=== PATIENT | female | born 1955 | race Caucasian/White ===

== ENCOUNTER 2019-12-31 11:00 | Outpatient (RCR) | payer MEDICARE, SELFPAY ==
--- NOTE | 2019-12-05 09:47 | PTOPEVAL ---
PHYSICAL THERAPY EVALUATION AND PLAN OF CARE Thank you for referring Ginna Sarkar to [facility].? The patient is scheduled to be seen for therapy? 1x/week for 4 weeks. Please review, sign, date and return this plan of care MATT. I agree with and certify that the following plan of care is medically necessary. Referring Physician Date Evaluation Diagnosis parkinson's disease Onset 2015 Additional Evaluation Detail Ginna is known to me from previous physical therapy for same diagnosis. She continues to take no medications, exercises up to 4 hours a day including a stretching program , stationary bike, and weight training. She also performs her LSVT BIG exercises daily. Subjective Information Ginna is here for Query Text:As Reported By Patient/ rehabilitation with diagnosis Family of PD. Reports that she feels there is progression since the last time she was here (~8- 10months ago). Reports that balance seems to be a bigger concern. Shuffling with walking and states that sometimes it feels better with distance and sometimes she fatigues faster. Notes most difficulty bringing right arm up overhead and more difficulty holding RLE in neutral position. Reports she is starting to feel left sided low back pain, especially on days she walks more. States this is not significant enough to give a number on number scale for. \ Balance Assessment Tinetti Balance Assessment: Vasquez Balance Assessment: 56/ 56 Time Up Go Timed Up and Go Test (TUG) (Seconds) 8 Assistive Devices None Comments 02/06/2019 = 6seconds 5 Time Sit to Stand Time in Seconds 8.98 5 Time Sit to Stand Comments 02/06/2019 = 7seconds Functional Gait Assessment: gait with cognitive challenge: gait speed/pattern remains unchanged, but cognitive challenge is slow to perform Gait Pattern Assessment Other Gait Observations Rigid gait pattern on right side of body: decreased arm swi
--- NOTE | 2019-12-05 10:33 | OTOPEVAL ---
OCCUPATIONAL THERAPY EVALUATION REPORT 12/05/2019 Thank you for referring Ginna Sarkar to [facility].? The patient is scheduled to be seen for occupational therapy? 1x/week for 4 weeks. Please review, sign, date and return this plan of care MATT. I agree with and certify that the following plan of care is medically necessary. Referring Physician Date Referring Provider: Ilan Boyce MD *OT Outpatient Evaluation Therapy Assessment Status Assessment Status Assessment Status Evaluation Outpatient Past Medical History Neurological History Hx Parkinson's Disease Yes Musculoskeletal History Hx Arthritis Yes Hematological History Hx Hematological Disorders No Significant History Endocrine History Hx Endocrine Disorders No Significant History HEENT History Hx HEENT Disorders No Significant History Integumentary History Hx Skin Disorders No Significant History Reproductive History Hx Reproductive Disorders No Significant History Psychosocial History Hx Psychiatric Disorders No Significant History Evaluation Information Problem Diagnosis Parkinson's Disease Additional Evaluation Detail Ginna presents for a tune up , last coming to therapy here about 11 months ago. She continues to take no medication and exercises about 4 hours/day which includes plyometrics, stretching, strength training. She has been completing LSVT exercises also. Subjective Information Patient reports that over the Query Text:As Reported By Patient/ past year she has noticed Family increased rigidity of her right UE and worsening symptoms of bradykinesia. She also notes stiffness in her elbow and hand, stating that her hand tends to curl . She also notes difficulty with raising her arm overhead and keeping her elbow straight. Fine motor tasks such as turning a garcia in her car's ignition has become more difficult. Other tasks she notes that have declined over the past year include cutting vegetables, stirring, brushing teeth with the right hand. Patient Specific Functional Scale:
--- NOTE | 2019-12-31 10:49 | OTOPEVAL ---
OCCUPATIONAL THERAPY RE-EVALUATION AND DISCHARGE REPORT 12/31/2019 OT re-evaluation reveals no significant change in functional coordination, ROM, or strength of the right UE since the initial evaluation from 12/05/19. She does report that she learned some new techniques and stretches to incorporate with her regular exercise routine. She also has improved body awareness of the right side, particularly with positioning the right arm in an extended position and keeping her hand/fingers straight as they tend to position in a curled posture. No further skilled OT indicated at this time. Discharge with patient independent with all materials. Thank you for referring Ginna Sarkar to [facility].? Please review, sign, date and return this Discharge Note MATT. I agree with and certify that the following plan of care is medically necessary. Referring Physician Date Referring Provider: Dr. Ilan Boyce *OT Outpatient Re-Evaluation Evaluation Information Problem Diagnosis Parkinson's Disease Onset 2015 Additional Evaluation Detail Ginna has participated in a therapy tune up , last coming to therapy here about 11 months ago. She continues to take no medication and exercises about 4 hours/day which includes plyometrics, stretching, strength training. She has been completing LSVT exercises also. Subjective Information Patient reports that over the Query Text:As Reported By Patient/ past month she has seen some Family improvements functionally, however she notes increased fatigue overall. She states this fatigue might be affected by the holidays coming up and being unable to see her family. She states that the rigidity and tightess in her right UE has not changed, but she states she is more aware of it and regularly incorporates stretching throughout the day. Patient Specific Functional Scale: Teeth brushin (improved from 5) Turning garcia in ingition: 5 ( unchanged 5) Stirrin (unchanged from 5) Cutting w/ knife: 6 (improved from 4) Push ups: 8 (improved from 4) Pain Assessment Timing of Pain Assessment Timing of Pa
--- NOTE | 2019-12-31 13:10 | PTOPEVAL ---
PHYSICAL THERAPY DISCHARGE NOTE Thank you for referring Ginna Sarkar to [facility].? Please review, sign, date and return this plan of care MATT. I agree with and certify that the following plan of care is medically necessary. Referring Physician Date Discharge Outpatient Past Medical History Diagnosis Parkinson's Disease Onset 2015 Subjective Information Patient reports feeling stiff Query Text:As Reported By Patient/ this morning, but otherwise no Family significant changes. Right side is rigid and expereinces hypokinesia and bradykinesia. Self Report Self Report Pain Level 0 Pain Score Pain Score 0: Self Report Balance Assessment Tinetti Balance Assessment Score (Balance + Gait) Lares Balance Assessment LARES Balance Evaluation Total Score 56/56 Time Up Go (TUG) Timed Up and Go Test (TUG) (Seconds) 6 Assistive Devices None Comments 12/05/2019 = 8seconds 02/06/2019 = 6seconds 5 Time Sit to Stand Time in Seconds 7.43 5 Time Sit to Stand Comments 12/05/2019 = 8.98seconds 02/06/2019 = 7seconds Functional Gait Assessment Total Score 29/30 Gait Pattern Assessment Other Gait Observations Rigid gait pattern on right side of body: decreased arm swing, decreased heel strike, decreased right knee extension ; faster patient tries to walk , the more forward posture she has; states that sometimes when walking, she will have to physically stop because she is so forward and her feet are so far behind 2 Minute Walk Total Distance Walked (feet) 509 2 Minute Walk Gait Speed Score (feet/ 4.24 second) 2 Minute Walk Test Comments decreased arm swing and decreased heel strike; increased lumbar lordosis : 3.99ft/second (02/06/2019 = 4.3ft/second) PT Clinical Summary Ginna si a 64 yo female presenting to outpatient physical therapy with diagnosis of parkinson's disease. Ginna has completed her tune up and we addressed balance, gait, strength, single
== END 2020-01-01 11:11 | disposition home or self-care (01) ==
LOC: ANHPT 11:00
PROVIDERS: PCP Family Medicine Adolescent Medicine
DX: G20 Parkinson's disease (principal)
CPT/HCPCS: 97110; 97161; 97165

== ENCOUNTER 2020-09-25 17:16 | Emergency (ER) | payer MEDICARE, SELFPAY ==
[2020-09-25 17:27] VITALS: BP 119/75; PULSE 91; RESP 18; TEMP 37.3; O2SAT 97
--- NOTE | 2020-09-25 18:26 | ED.GENADULT ---
HPI - General Adult General Chief complaint: Back Pain/Injury Stated complaint: back pain Source: patient and family (Adult son) Mode of arrival: ambulatory Limitations: no limitations History of Present Illness HPI narrative: Patient is a 65-year-old female presents to the urgent care via POV for evaluation of upper back pain that is been present for 3 days. Additionally, patient reports back pain radiates up back. She believes her back pain was caused by tree trimming on Tuesday since she noticed the pain after pulling the tree trimming away from the tree on a tarp. Back pain improves with lying flat, taking Tylenol and Aleve. Prolonged sitting and standing worsens back pain. History of chronic back pain. Related Data Home Medications Medication Instructions Recorded Confirmed atorvastatin 09/25/20 Allergies Allergy/AdvReac Type Severity Reaction Status Date / Time codeine Allergy Mild Verified 02/12/13 11:24 penicillin G Allergy Mild Verified 02/12/13 11:24 Review of Systems Review of Systems: Denies history of injury, urinary tract infections, pyelonephritis, and renal calculi. Denies fever, chills, sweats, change in appetite, poor p.o. intake, malaise, recent weight loss, myalgias, lymphadenopathy, headache, dizziness, STD exposure, painful intercourse, abdominal pain, constipation, nausea, vomiting, diarrhea, abdominal cramping, dysuria, hematuria, urinary frequency/urgency, back pain, urinary incontinence, vaginal bleeding/discharge, shortness of breath, chest pain, and heart palpitations/murmurs. [facility] Past Medical History Medical History (Updated 09/25/20 @ 18:30 by Amol Gomez, [employer] [facility], ) Chronic back pain Parkinson's disease Comments I have reviewed and agree with the patient's past medical, surgical, social, and family hx as documented by the RN. There is no relevant family history pertinent to the presenting complaint. Exam Narrative: GENERAL: Well-appearing, well-nourished, and in no acute distress. HEAD: Normocephalic, atraumatic. NECK: Supple. No lymphadenopathy or nuchal rigidity. No evidence of pain, decreased ROM, or deformity. CHEST: Lung sounds are clear to auscultation in bilateral lung olea. No respiratory distress. HEART: Regular rate and rhythm. No murmur heard. Normal peripheral pulses. ABDOMEN: Soft, nontender, nondistended, normal active bowel sounds in all quadrants. No guarding. No rebound tenderness. No pulsatile or palpable abdominal mass(es). No CVAT EXTREMITIES: Normal range of motion. No edema. BACK: Full ROM. No evidence of deformity, spasm, mass, spinal tenderness, or swelling. Bilateral SLR tests negative. Normal gait. Mild bilateral thoracic pain elicited with palpation. Pain is present with all range of motion. SKIN: Warm, dry, no rash. No skin color changes. Excellent turgor. NEURO: No focal deficits. Alert and oriented x3. Course Vital Signs Vital signs: Vital Signs Temperature 99.1 F 09/25/20 17:27 Pulse Rate 91 09/25/20 17:27 Respiratory Rate 18 09/25/20 17:27 Blood Pressure 119/75 09/25/20 17:27 Pulse Oximetry 97 09/25/20 17:27 Temperature 99.1 F 09/25/20 17:27 Pulse Rate 91 09/25/20 17:27 Respiratory Rate 18 09/25/20 17:27 Blood Pressure 119/75 09/25/20 17:27 Pulse Oximetry 97 09/25/20 17:27 Medical Decision Making Differential Diagnosis Differential Diagnosis: Spinal stenosis, radiculopathy/sciatica,cauda equina syndrome, sacroiliac pathology, fracture, strain, spasm, UTI, pyelonephritis, nephrolithiasis Medical Records Medical records reviewed: Yes I reviewed the external patient's medical records. Vital Signs Vital Signs: Vital Signs Temperature 99.1 F 09/25/20 17:27 Pulse Rate 91 09/25/20 17:27 Respiratory Rate 18 09/25/20 17:27 Blood Pressure 119/75 09/25/20 17:27 Pulse Oximetry 97 09/25/20 17:27 Temperature 99.1 F 09/25/20 17:27 Pulse Rate 91 09/25/20 17:27 Respir
== END 2020-09-25 18:32 | disposition home or self-care (01) ==
PROVIDERS: Emergency Provider Nurse Practitioner Family; PCP Family Medicine Adolescent Medicine
DX: M54.6 Pain in thoracic spine (principal); G20 Parkinson's disease
CPT/HCPCS: 99213; G0463

== ENCOUNTER → 2020-12-23 11:39 | Outpatient (CLI) | payer MEDICARE, SELFPAY ==
--- NOTE | ~2020-12-23 | XR_ITS ---
XR lumbar spine 2-3V DATE: 12/23/2020 12:36 INDICATION: Back pain TECHNIQUE: AP, lateral, coned lateral lumbosacral views COMPARISON: None FINDINGS: There is prominent diffuse osteopenia. There is grade 1 anterolisthesis at L4-5 due to degenerative change at the apophyseal joints. No fracture or bone destruction is evident. The lumbar pedicles are intact. There is mild degenerative disc disease at L1-2, L2-3 and L3-4. The sacroiliac joints are intact. IMPRESSION: Prominent diffuse osteopenia Grade 1 anterolisthesis at L4-5 due to degenerative change at the apophyseal joints Mild degenerative disc disease Reviewed, dictated and finalized at location [facility] IMPRESSION: Prominent diffuse osteopenia Grade 1 anterolisthesis at L4-5 due to degenerative change at the apophyseal ann ints Mild degenerative disc disease
== END ==
PROVIDERS: PCP Family Medicine Adolescent Medicine; Visit Provider Family Medicine Adolescent Medicine
DX: M85.88 Other specified disorders of bone density and structure, other site (principal); M51.36 Other intervertebral disc degeneration, lumbar region
CPT/HCPCS: 72100

== ENCOUNTER 2021-04-12 13:07 | Emergency (ER) | payer MEDICARE, SELFPAY ==
[2021-04-12 13:20] VITALS: BP 110/73; PULSE 91; RESP 18; TEMP 36.8; O2SAT 100
--- NOTE | 2021-04-12 13:34 | ED.EYEPROB ---
HPI - Eye Problem General Chief complaint: Eye Problems Stated complaint: Left Eye Pressure Time Seen by Provider: 04/12/21 13:34 Source: patient and RN notes reviewed Mode of arrival: ambulatory Limitations: no limitations History of Present Illness HPI Narrative: 65-year-old female presents to the [facility] with complaints of redness to the cornea of the left eye. Noticed it this morning after using the bathroom Patient does use contact lenses. No strenuous activity. Cannot think of any trauma to the eye. Denies any blurry vision or change in vision. Denies headaches, congestion. MD chief complaint: eye pain and eye redness Related Data Home Medications Medication Instructions Recorded Confirmed atorvastatin 20 mg PO DAILY 04/12/21 04/12/21 ropinirole 0.5 mg PO DAILY 04/12/21 04/12/21 Allergies Allergy/AdvReac Type Severity Reaction Status Date / Time codeine Allergy Mild Hives Verified 04/12/21 13:14 penicillin G Allergy Mild Hives Verified 04/12/21 13:14 Review of Systems Review of Systems: All systems reviewed & are unremarkable except as noted in HPI and below Constitutional: Constitutional: Reports no additional constitutional complaints, Denies chills and Denies fever(s) Eyes: Eyes: Reports as per HPI Comments: Redness ENT: Reports system reviewed and no additional complaints, except as documented Cardiovascular: Cardiovascular: Reports no additional cardiovascular complaints Respiratory: Respiratory: Reports no additional respiratory complaints Gastrointestinal: Gastrointestinal: Reports no additional gastrointestinal complaints Musculoskeletal: Musculoskeletal: Reports no additional musculoskeletal complaints Integumentary/Breasts: Skin/Breast: Reports system reviewed and no additional complaints, except as docu Neurologic: Reports system reviewed and no additional complaints, except as documented Psychiatric: Psychiatric: Reports no additional psychiatric complaints Allergic/Immunologic: Allergic/Immunologic: Reports no additional allergic/immunologic complaints PMFSH Past Medical History Medical History Chronic back pain Parkinson's disease Comments At the time of my signature, I reviewed and agree with the nursing past medical, surgical, social, and family history. There is no relevant family history pertinent to the patient complaint. Exam Const: General: healthy appearing, no acute distress and alert Nutritional Appearance: well nourished Orientation/consciousness: patient oriented x3 Limitations: no limitations HENMT: Head: normal to inspection Ears: external ears normal Eyes: Conjunctivae: conjunctivae normal Cornea: corneas abnormal on the left fluorescein used and abrasion; no contact lens present, with no foreign body noted and without ulcerations Pupils: Equal, round and reactive pupils present EOM: EOMs intact bilaterally Direct Ophthalmoscopy: no photophobia Eyes/upper lids images: 1. abrasion 2. Subconjunctival hemorrhage Neck: Neck: normal visual inspection, no lymphadenopathy and no meningeal signs Chest: Chest palpation & inspection: normal inspection of the chest Resp: Effort & Inspection: normal respiratory effort Auscultation: clear to auscultation bilaterally Cardio: Rate: regular rate Rhythm: regular rhythm Skin: General skin exam: normal color Rashes: no rashes Wounds: no wounds Neuro: General: patient oriented x3, moves all extremities, no meningeal signs and no focal motor deficits Speech: normal speech Gait exam (Neuro): Normal gait present (Shuffling gait, Parkinson's) Extrem: General: normal to inspection Psych: Appearance: grossly normal and well kempt Mental Status: mental status grossly normal Affect: normal affect Attitude: cooperative Thought content: Yes Normal thought content present Course Course Emergency Course: Discharge instructions reviewed with patient, renetta
== END 2021-04-12 14:13 | disposition home or self-care (01) ==
PROVIDERS: Emergency Provider Nurse Practitioner; PCP Family Medicine Adolescent Medicine
DX: S05.02XA Injury of conjunctiva and corneal abrasion without foreign body, left eye, initial encounter (principal); X58.XXXA Exposure to other specified factors, initial encounter; H11.32 Conjunctival hemorrhage, left eye; G20 Parkinson's disease
CPT/HCPCS: 99213; A9270; G0463

== ENCOUNTER 2021-04-29 09:30 | Outpatient (RCR) | payer MEDICARE, SELFPAY ==
--- NOTE | 2021-03-18 11:23 | PTOPEVAL ---
PHYSICAL THERAPY EVALUATION and PLAN OF CARE Thank you for referring Ginna Sarkar to [facility].? The patient is scheduled to be seen for therapy? 1x/week for 6 weeks. Please review, sign, date and return this plan of care MATT. I agree with and certify that the following plan of care is medically necessary. Referring Physician Date Evaluation Outpatient Past Medical History Neurological History Hx Parkinson's Disease Yes Musculoskeletal History Hx Arthritis Yes Hematological History Diagnosis Parkinson's Disease Subjective Information Patient presents today for PT Query Text:As Reported By Patient/ evaluation, stating that she Family has noticed a progression in her PD symptoms since her last visit to our clnic in Dec 2019. She states that she has begun falling and that she began taking medication ( Ropinirole) 10 days ago. States that the falling typically happens when she gets into a stutter stepping pattern and she twan fall when she stops (momentum keeps going). The first 10 days of medication do not seem to have made a difference so her neurologist doubled the dose. She notes her posture is more forward. She notes a decline in right sided gross motor coordination and strength. She states her right side feels more rigid and that she has been having sharp, stabbing right sided back pain for about 6 months. Functionally she states she has been having increased difficulties with typing, opening soup cans, chopping vegetables, push ups, holding/ using a tooth brush, using fingernail clippers, turning a garcia to start the car, using scissors, and stirring food ( salads, pasta, mashed potatoes , etc.) Patient reports that she continues to move and stretching tacho
--- NOTE | 2021-03-18 11:28 | OTOPEVAL ---
OCCUPATIONAL THERAPY INITIAL EVALUATION REPORT 03/18/21 Thank you for referring Ginna Sarkar to [facility].? The patient is scheduled to be seen for therapy? 1x/week for 4-6 weeks. Please review, sign, date and return this plan of care MATT. I agree with and certify that the following plan of care is medically necessary. Referring Physician Date *OT Outpatient Evaluation Start: 03/18/21 08:59 Outpatient Past Medical History Neurological History Hx Parkinson's Disease Yes Musculoskeletal History Hx Arthritis Yes Hematological History Hx Hematological Disorders No Significant History Endocrine History Hx Endocrine Disorders No Significant History HEENT History Hx HEENT Disorders No Significant History Integumentary History Hx Skin Disorders No Significant History Reproductive History Hx Post Menopausal Yes Psychosocial History Hx Psychiatric Disorders No Significant History Evaluation Information Problem Diagnosis Parkinson's Disease Onset diagnosis ~6 years ago Subjective Information Patient presents today for OT Query Text:As Reported By Patient/ evaluation, stating that she Family has noticed a progression in her PD symptoms since her last visit to our cl[facility] in Dec 2019. She states that she has been falling and that she began taking medication ( Ropinirole) 10 days ago. She notes her posture is more forward. She notes a decline in right sided gross motor coordination and strength. She states her right side feels more rigid and that she has been having sharp, stabbing right sided back pain for about 6 months. Functionally she states she has been having increased difficulties with typing, opening soup cans, chopping vegetables, push ups, holding/using a tooth brush, using fingernail clippers, turning a garcia to start the car , using scissors, and stirring food (salads, pasta, mashed potatoes, etc.). She states that she has given a lot of her clothes away this past year due to having too much
--- NOTE | 2021-04-29 09:44 | PTOPEVAL ---
PHYSICAL THERAPY DISCHARGE NOTE Thank you for referring Ginna Sarkar to [facility].? Please review, sign, date and return this plan of care MATT. I agree with and certify that the following plan of care is medically necessary. Referring Physician Date Diagnosis Parkinson's Disease Onset diagnosis ~6 years ago Subjective Information things she has learned: Query Text:As Reported By Patient/ quality over quantity in Family exercising, slower can be better, big is always better; specific exercises - she really enjoys doing angels states that her medication makes her feel weird - like she has tingling inside and her stomach hurts PAIN: right ankle was really very sore two days after a walk but then the 3rd day was feeling better - we spent some time discussing strategies to manage these symptoms with stretching and breaks as needed, provided her with specific stretches to do and practiced them Pain Assessment Timing of Pain Assessment Timing of Pain Assessment Pre-Treatment Self Report Self Report Pain Level 0 Pain Score Pain Score 0: Self Report Lower Extremity Muscle Strength Testing Hip Strength Right Hip Flexion Strength 4+ Good + Hip Extension Strength 3+ Fair + Hip Abduction Strength 3+ Fair + Knee Strength Right Knee Flexion Strength 4+ Good + Knee Extension Strength 4+ Good + Palpation Assessment Palpation Palpation improved thoracic and rib mobility although does continue to be quite hypomobile secondary to rigidity from PD diagnosis - we discuss at length the reccomendation to increase scapular movement and mobility and using foam roll to decreased stiffness/tightness of thoracic spine Gait Assessment 6 Minute Walk Total Distance (feet) 1,051 6 Minute Walk Gait Speed Score (feet/ 2.91 second) 6 Minute Gait Comments 6 weeks ago = 1001 (2.78ft/ second) General Exercise Gene
--- NOTE | 2021-04-29 10:28 | OTOPEVAL ---
OCCUPATIONAL THERAPY RE-EVALUATION REPORT AND DISCHARGE SUMMARY 04/29/21 Ginna is a 65 year-old, right handed female with dx of Parkinson's who is referred to outpatient therapy due to progression in her symptoms with bradykinesia, hypokinesia, and rigidity, which has affected her functionally with ADLs, cooking tasks, and mobility related ADLs. We have been working with Ginna 1x/week for the past 6 weeks focusing on improved movement quality, bigness , and bodily awareness. She reports some functional improvements and reports some areas that feel the same. Overall she feels encouraged and has a few new exercises to continue to do on her own. Discharging today with patient independent with all materials. Thank you for referring Ginna Sarkar to [facility] [place]. Please review, sign, date and return this D/C Note MATT. I agree with and certify that the following plan of care is medically necessary. Referring Physician Date *OT Outpatient Evaluation Start: 03/18/21 08:59 Evaluation Information Problem Diagnosis Parkinson's Disease Onset diagnosis ~6 years ago Subjective Information Ginna states that she has Query Text:As Reported By Patient/ learned a lot by coming to Family therapy noting that she is more mindful about her posture , weight shifting, and bigness during ADLs. She does note that her handwriting looks more legible. Functionally she states she has noticed some improvements with using a nail clipper, starting the car, twist bottle tops, putting on shoes, and pinching a pant communications clerk. Pain Assessment Timing of Pain Assessment Timing of Pain Assessment Re-assessment Pain Scale Pain Scale Used Numeric (1 - 10) Self Report Pain Assessment Right Lower Back Reported Pain Level 0 Pain Score Pain Score 0: Self Report Upper Extremity Range of Motion Scapular/ Shoulder Range of Motion Right Scapular: Retraction Normal Scapular Downward Rotation Normal Scapular Upward Rotation Normal Shoulder Flexion - Active 135 Shoulder Extension - Active 55 Shoulder Abduction - Active 140 Shoulder Medial Rotation - Active 3 inch discrepancy between Query Text:Reach Behind the Back right and left. Unchanged. Shoulder Lateral Rotation - Active Lateral rotation is now Query Text:Reach Behind the Head symmetrical. Scapular/Shoulder Range of Motion Shoulder flexion improved 10* Comments Shoulder extension improved 5* Shoulder abduction improved 10* Elbow/Forearm Range of Motion Right Elbow Flexion - Active 140 Elbow Extension - Active 0 Forearm Supination - Active
== END 2021-06-01 09:18 | disposition home or self-care (01) ==
LOC: ANHOT 09:30
PROVIDERS: PCP Family Medicine Adolescent Medicine
DX: G20 Parkinson's disease (principal)
CPT/HCPCS: 97110; 97112; 97116; 97140; 97163; 97166; 97530

== ENCOUNTER → 2021-06-03 11:20 | Outpatient (CLI) | payer MEDICARE, SELFPAY ==
--- NOTE | ~2021-06-03 | XR_ITS ---
XR foot RT min 3V DATE: 06/03/2021 11:38 INDICATION: Right foot pain TECHNIQUE: 4 views COMPARISON: None FINDINGS: Diffuse osteopenia. No fracture or dislocation, periosteal reaction or bone destruction. IMPRESSION: Osteopenia Reviewed, dictated and finalized at location A. IMPRESSION: Osteopenia
== END ==
PROVIDERS: PCP Family Medicine Adolescent Medicine; Visit Provider Physician Assistant
DX: M85.871 Other specified disorders of bone density and structure, right ankle and foot (principal)
CPT/HCPCS: 73630

== ENCOUNTER → 2021-09-11 15:34 | Outpatient (CLI) | payer MEDICARE, SELFPAY ==
--- NOTE | ~2021-09-11 | DEXA_ITS ---
Bone Density Report Name: AZIZA DOLL Age: 66 Sex: Female Ethnicity: White Date of : 1955 Indication: postmenopausal; screening for osteoporosis; height loss; Referring Provider: ELLEN SALGADO Study: Bone densitometry was performed. Exam Date: September 11, 2021 Accession number: [id number] Bone Density: Region BMD T-score Z-score Classification AP Spine (L1-L4) 0.513 -4.9 -2.9 Osteoporosis Femoral Neck (Left) 0.468 -3.4 -1.8 Osteoporosis Total Hip (Left) 0.623 -2.6 -1.2 Osteoporosis Femoral Neck (Right) 0.416 -3.9 -2.2 Osteoporosis Total Hip (Right) 0.538 -3.3 -1.9 Osteoporosis Total Hip Mean 0.581 -3.0 -1.6 Osteoporosis World Health Organization criteria for BMD impression classify patients as: Normal (T-score at or above -1.0), Osteopenia (T-score between -1.0 and -2.5), or Osteoporosis (T-score at or below -2.5). 10-year Fracture Risk: FRAX not reported because: Some T-score for Spine Total or Hip Total or Femoral Neck at or below -2.5 Clinical Information Provided by Patient: Has used the following medications: Vitamin D, Calcium Patient maximum height was 60 Menopause Age: 51 Onset of menses at age 13 Number of children 2 Impression: The patient has osteoporosis, based on the Total Spine T-score. Discussion: HIGH RISK OF FRACTURE. BONE DENSITY IS UNDESIRABLY LOW AT ONE OR MORE SKELETAL SITES, CONSISTENT WITH OSTEOPOROSIS. ALSO, BONE DENSITY IS LOWER THAN EXPECTED FOR AGE AND SEX AT ONE OR MORE SKELETAL SITES; RECOMMEND A DILIGENT SEARCH FOR SECONDARY CAUSES OF BONE LOSS. This patient's lowest T-score meets the World Health Organization's (WHO) criteria for osteoporosis at one or more sites (T-score -2.5 or below). In untreated patients, the risk of osteoporotic fracture increases approximately two-fold for each 1.0 SD decrease in T-score. Low bone density is not the only risk factor for fracture; also consider factors such as patient's age, frailty or poor health, risk of falling, risk of injury, previous osteoporotic fracture, family history of osteoporosis, cigarette smoking, low body weight, etc. Not everyone with low bone mineral density has osteoporosis; osteomalacia and other metabolic bone disorders should also be considered. Patients who have osteoporosis should be evaluated for specific diseases and conditions (secondary causes) that may cause or contribute to bone loss. The [place] Association [employer] Clinical Endocrinologists (AACE) and National Osteoporosis Foundation (NOF) recommend pharmacologic intervention for all postmenopausal women whose T-score is in this range. Also, this patient's bone mineral density is below the range considered normal for healthy age-, sex-, and race-matched controls at least one site (Z-score -2.0 or below). This warrants careful evaluation for diseases and
== END ==
PROVIDERS: Visit Provider Physician Assistant
DX: Z78.0 Asymptomatic menopausal state (principal); M81.0 Age-related osteoporosis without current pathological fracture
CPT/HCPCS: 77080

== ENCOUNTER 2021-11-19 09:30 | Outpatient (RCR) | payer MEDICARE, SELFPAY ==
--- NOTE | 2021-10-22 10:36 | OTOPEVAL1 ---
Assessment and note entered by Jamin Zaman, OLMAN/Josie, CHT Evaluation Information Assessment Status Evaluation Diagnosis Parkinson's Disease Subjective Information Initial dx ~6 years ago. Patient began taking medication 2 weeks ago - Rasagiline. She takes a dose 1x/day. She continues to exercise 2 hrs/day, but has cut back on walking due to fear of falling. She states the right foot drags or she stumbles. 1 fall in the last month. Daily near falls . She reports a decline in her posture, noting that her shoulders tend to roll more forward especially with prolonged standing activities. She states she is noticing increased fatigue - I can't do too much in one day or I'm exhausted. PSFS: - using a nail clipper 04/16 - opening jars 05/17 - donning shoes 06/16 - starting the car 05/17 - hand writing 05/17 - walking 04/16 Reported Pain Level Pain Score 0: Self Report Assessment OT Clinical Summary Ginna is a 66 year-old, right handed female with dx of Parkinson's who is referred to outpatient therapy due to progression in her symptoms with bradykinesia, hypokinesia, and rigidity, which has affected her functionally with ADLs, cooking tasks, and mobility related ADLs. She will benefit from skilled OT treatment focused on targeting neuroplasticity via amplitude-based interventions to target kinesthetic mismatch between Billys perception of movement and the actual output. Plan of Care Interventions Therapeutic Exercise,Neuro Re-education, Therapeutic Activities,Self-Care/Home Management OT Services Indicated Yes Treatment Frequency and 1x/week for 4 weeks Duration These treatments will address the objective and functional deficits as defined above. The patient will be advanced safely and appropriately in order for the patient to progress towards his/her prior level of function. Additional exercises will be introduced and as well as a comprehensive home exercise program upon discharge, if needed, ?to ensure carryover of functional gains achieved in the clinic. This treatment plan has been reviewed and agreement upon by the patient.
--- NOTE | 2021-10-22 15:05 | PTOPEVAL1 ---
Assessment and note entered by Samantha Brambila, PT Evaluation Information Assessment Status Re-evaluation Reported Pain Level Pain Score 0: Self Report Pain Score 0: Self Report Pain Score 0: Self Report Assessment PT Clinical Summary Pt presents w/ dx of PD, inital dx 6 years ago. Today demo's significant gait abnormalities related to body awareness. Demo's crouched gait, unequal step length, lack of RUE swing, decreased clearance bilat R>L, shuffling pattern and easily fatigued. Also demo's difficulty with mat mobility related to rigidity vs flexibility. Pt reports she does exercise daily and reports approx 3 hours worth of activity. Discussed modification of exercise routine for more efficient use of time as well as postural activity to lift her chin while in sitting to assist in improvement of flexion posturing. Pt will benefit greatly from PT to address improvement of rigidity, body awareness, balance, and gait in order to improve pt independence and quality of life. Plan of Care Interventions Gait Training,Manual Therapy,Patient/Caregiver Educati,Therapeutic Activities,Therapeutic Exercise PT Services Indicated Yes Treatment Frequency and 1x weekly x 10 weeks Duration These treatments will address the objective and functional deficits as defined above. The patient will be advanced safely and appropriately in order for the patient to progress towards his/her prior level of function. Additional exercises will be introduced and as well as a comprehensive home exercise program upon discharge, if needed, ?to ensure carryover of functional gains achieved in the clinic. This treatment plan has been reviewed and agreement upon by the patient.
--- NOTE | 2021-11-19 10:15 | OTOPDC ---
Assessment and note entered by OLMAN Monsivais/Josie Evaluation Information Assessment Status Discharge Diagnosis Parkinson's Disease Subjective Information Patient reports starting car ignition and jar turning has become easier since first appointment. Patient reports nail clippers is still difficult to complete. Patient reports independence with HEP materials and has been diligent to complete daily . Reported Pain Level Pain Score 0: Self Report Assessment OT Clinical Summary Ginna is a 66 year old R hand dominant Female with a dx of Parkinson's who is referred to outpatient therapy to address progression in her symptoms with bradykinesia, hypokinesia, and rigidity, which has affected her functionally with ADLs. She has attended x4 sessions with OT to address targeting neuroplasticity via amplitude- based interventions to target kinesthetic mismatch between Aarons perception of movement and the actual output. Patient has made progress with R UE strength, active ROM, and fine motor coordination as measured through nine hole peg test, patient also self reports improvements with functional activities including starting care and opening jars. No skilled OT is indicated at this time, patient agreeable to discharge, independent with HEP materials. Plan of Care OT Services Indicated No
--- NOTE | 2021-11-24 13:20 | PCPTNOTE ---
Evaluation 10/22/21 late entry: performed Evaluation, not reevaluation. Mistake occurred while editing Evaluation.
== END 2022-01-07 10:42 | disposition home or self-care (01) ==
LOC: ANHOT 09:30
PROVIDERS: PCP Family Medicine Adolescent Medicine
DX: G20 Parkinson's disease (principal)
CPT/HCPCS: 97110; 97112; 97116; 97162; 97166; 97168; 97530

== ENCOUNTER 2022-08-04 09:00 | Outpatient (RCR) | payer MEDICARE, SELFPAY ==
--- NOTE | 2022-05-11 10:21 | PTOPEVAL1 ---
Assessment and note entered by Sally Sheppard, PT Evaluation Information Assessment Status Evaluation Diagnosis Parkinson's Disease Onset Feb 2022 Subjective Information Ginna reports more stiffness, balance problems and walking problems; have not had any falls in the past 6 months, have had stumbles and loss of balance, but not hit the ground; exercises every day-Big and Loud exercises, DVD of classical stretch, 5# hand wts for arms, pilates/yoga--was working out 5 hrs/day, but decreased to 2 hours and feel better with less back pain; started taking a new Parkinson's med about 6 months ago-- she thinks; still have some freezing with walking GOAL for PT: work on balance and walking; less ankle pain Reported Pain Level Pain Score Self Report Additional Pain Score Comments pain range of ankles in past week 1-10/17, L more pain than R; increase pain with walking and standing 10 minutes; use muscle cream and tylenol for pain Assessment PT Clinical Summary Ginna has the diagnosis of Parkinson's Disease. She reports increased ankle pain in both, L more than R, after increased walking and activity. 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 And has not had any falls. With the evaluation, she has decreased strength and motor control of R ankle and pain in L ankle with walking; TUG, Vasquez balance test scores are within normal ranges. Single leg standing on the L is decreased due to pain in ankle; 2 minute walking test distance is 375' with increased pain L ankle and poor gait pattern. Skilled PT services are indicated, for therapeutic exercises and activities to increase ankle strength and decrease pain in L ankle, with modalities PRN for pain control and gait/balance retraining. Plan of Care Interventions Electrical Stimulation,Gait Training,Hot Pack/Cold Pack,Manual Therapy,Neuro Re-education,Patient/ Caregiver Education,Therapeutic Activities, Therapeutic Exercise,Ultrasound,Other Other Interventions fluidotherapy, taping PT Services Indicated Yes Treatment Frequency and 1x/wk for 6 weeks Duration These treatments will address the objective and functional de
--- NOTE | 2022-05-11 11:43 | OTOPEVAL1 ---
Assessment and note entered by Jamin Zaman, OLMAN/Josie, CHT Evaluation Information Assessment Status Evaluation Diagnosis Parkinson's Subjective Information Initial dx ~6.5 years ago. Patient began taking medication 6 months ago - Rasagiline. She takes a dose 1x/day. Reports this has been helping with her movement quality and she has not had any falls since beginning the medication. She states her family has noticed that she is moving better on the medication also. She reports difficulties with ADL tasks below: PSFS: - using a nail clipper 06/16 - opening jars 06/16 - donning shoes 07/17 - starting the car 07/17 - hand writing 05/17 - walking 07/17 Assessment OT Clinical Summary Patient referred to outpatient OT with dx of Parkinson's. Skilled therapy indicated secondary to a decline in ADL function and recent falls due to bradykinesias and hypokinesia. She will benefit from skilled treatment focused on targeting neuroplasticity via amplitude-based interventions to target kinesthetic mismatch between patient's perception of movement and the actual output to facilitate recalibration of kinesthetic and proprioceptive movement. Plan of Care Interventions Therapeutic Exercise,Neuro Re-education, Therapeutic Activities OT Services Indicated Yes Treatment Frequency and 1x/week for 6 weeks Duration These treatments will address the objective and functional deficits as defined above. The patient will be advanced safely and appropriately in order for the patient to progress towards his/her prior level of function. Additional exercises will be introduced and as well as a comprehensive home exercise program upon discharge, if needed, ?to ensure carryover of functional gains achieved in the clinic. This treatment plan has been reviewed and agreement upon by the patient.
--- NOTE | 2022-06-23 09:52 | OTOPDC ---
Assessment and note entered by Jamin Zaman, OLMAN/Josie, CHT Evaluation Information Assessment Status Discharge Diagnosis Parkinson's Subjective Information Initial dx ~6.5 years ago. Patient began taking medication 6 months ago - Rasagiline. She takes a dose 1x/day. She continues to report no falls. States her function and abilities fluctuate depending on the time of day and her level of fatigue. She states she has been able to walk more with reduced ankle pain. She reports difficulties with ADL tasks below: PSFS: - using a nail clipper 03/19 - opening jars 07/17 - donning shoes 08/16 - starting the car 06/16 - hand writing 06/16 - walking 06/16 Measurements today show patient has made some functional progress with gross and fine motor coordination. She is moving better and reports she is feeling better. She reports she has been more active with the nicer weather also. Reported Pain Level Pain Score 0: Self Report Assessment OT Clinical Summary Patient referred to outpatient OT with dx of Parkinson's. She has been participating in outpatient OT for 6 sessions with the focus on improved amplitude movement, improved fluidity of movement, and improved functional fine motor coordination. Ginna has made progress with functional gross and fine motor coordination and reports she has been feeling and moving better. She is currently independent with all home exercises and is ready for discharge. Plan of Care OT Services Indicated No
--- NOTE | 2022-06-23 10:30 | PTOPPROG ---
Assessment and note entered by Sally Sheppard, PT Evaluation Information Assessment Status Progress Diagnosis Parkinson's Disease Onset Feb 2022 Subjective Information Ginna reports: no pain in the R ankle for the past week--cannot recall the last time it hurt, except at start of therapy; no longer a problem, but ankle is more prone to twisting and rolling, causing her pain; some pain in L foot about 2x/week at night, curl toes and have to rub or stretch them to ease it; walking for fitness, about 1 mile with 1-2 rest breaks, 20-30 minutes; since starting therapy, has had 2 falls: one tripped on her R foot and one when walking down the stairs and talking on the phone. continues to do her exercises at home, but has problems getting her legs to move like she wants them to. Wants to continue therapy. Assessment PT Clinical Summary Ginna has received 7 PT sessions. Compared to the initial evaluation: single leg standing on L and R is about the same; 2 minute walking test distance increased by 35'; no longer has R ankle pain and reported walking distance with fitness has increased from 10 to 20-30 minutes; she has difficulty with standing LE motions and motor control with toe taps on 6 step and Wii balance activities on step-- copying the motions on the screen. She has had 2 falls and continues to have decreased R ankle strength and mobility, with decreased motor control and flexion of her posture with standing/walking. The goals were partially achieved. Continue PT treatment to further improve R ankle strength, dynamic balance and motor control of LE's Plan of Care Interventions Gait Training,Neuro Re-education,Patient/Caregiver Education,Therapeutic Activities,Therapeutic Exercise Other Interventions fluidotherapy, taping PT Services Indicated Yes Treatment Frequency and 1x/wk for 6 weeks Duration These treatments will address the objective and functional deficits as defined above. The patient will be advanced safely and appropriately in order for the patient to progress towards his/her prior level of function. Additional exercises will be introduced and as well as a comprehensive home exercise program upon discharge, if
--- NOTE | 2022-08-04 09:50 | PTOPDC ---
Assessment and note entered by Sally Sheppard, PT Evaluation Information Assessment Status Discharge Diagnosis Parkinson's Disease Onset Feb 2022 Subjective Information Ginna reports: back is better- not hurting the past few days; have been going to the pool and walking; have been doing the exercises on my stomach and they are helping; no falls, but have had peroids of freezing/stuck with motions--mostly getting out of bed and out of car, can move with my hands to get it started; have had spasms over whole R leg a few times at night; She voiced frustration over her continued issues with mobility/gait/balance and trying to get all of her exercises in--pool, yoga, walking, therapy exercises, weights; discussed with her to NOT OVERDO it and plan of varied activities on different days. She voiced understanding, but wants to try to DO MORE, to get better. And the need to work so hard to maintain her self and mobility. Reinforced Parkinson's support group and appreciate what she can do and NOT be so hard on herself. Reported Pain Level Pain Score 0: Self Report Assessment PT Clinical Summary Ginna has received 12 PT sessions. Compared to the last reevaluation: 2 minute walking test distance has increased by 20'; strength and balance, of trunk and hip have increased with: single leg stand time R and L, forward lunge without loss of balane, alternate toe tap R/L on 6 step without toe catch, step up lead with R and L without toe catch; She continues to have weakness of R ankle with decreased control. And with walking, has flexed posture of trunk, hips and knees, with decreased heel strike. Her home exercise program and gait training have been completed. The goals were partially met. Discharge PT. She is to continue with her home exericses. Plan of Care PT Services Indicated No
== END 2022-08-04 15:07 | disposition home or self-care (01) ==
LOC: ANHPT 09:00
PROVIDERS: PCP Family Medicine Adolescent Medicine
DX: G20 Parkinson's disease (principal)
CPT/HCPCS: 97110; 97112; 97161; 97166; 97530

== ENCOUNTER 2022-11-22 10:15 | Outpatient (RCR) | payer MEDICARE, SELFPAY ==
--- NOTE | 2022-10-14 11:00 | OPREHPOC ---
Outpatient Therapy Plan of Care This is a Multidisciplinary Plan of Care that may contain components documented by all disciplines (PT, OT, and ST.) PT Problem 1 PT Problem #1 Knowledge Deficit PT Goal 1 Goal 1 indep with HEP PT Problem 2 PT Problem #2 Impaired Strength PT Goal 1 Goal increase strength of R ankle: pt able to perform 20 reps in sittin* DF through full ROM 2* inversion with heel on ground 3* eversion with heel on ground single leg standing x 14 seconds 4* R 5* L PT Problem 3 PT Problem #3 Impaired Functional Mobil PT Goal 1 Goal 1* improve Dynamic Gait Index score to 21/24 2* pt able to walk 30, 3# wt in bucket with good gait pattern 3* pt step up curb/one step with 3# wt in bucket with good balance 4* pt report NO falls
--- NOTE | 2022-10-14 11:00 | PTOPEVAL1 ---
Assessment and note entered by Sally Sheppard PT Evaluation Information Assessment Status Evaluation Diagnosis Parkinson's Disease Onset August 2022 Subjective Information have had 2 falls in the past 2 months- walking and carrying something; struggle carrying groceries into the house--balance thrown off; have one step from garage into her home, that does not have a railing, so she carries only with one hand, so other hand is able to hold onto wall or door; have freezing with walking; mentioned med change--pt is not interested in a different med at this time--concerned about the side effects. Is now taking rasaglane/azilict. has had PT here in the past and continues to do all of the exercises on bed and standing; Have not been using her ball for exercises; voiced frustration about doing all this work and exercises ant NOT progressing or improving, just maintaining what she has; Activity: doing exercises at home--strength and balance activities 1-2 x/day; GOAL: work on walking, mobility and balance, carry groceries in house; Reported Pain Level Pain Score 0: Self Report Assessment PT Clinical Summary Ginna has the diagnosis of Parkinson's Disease, with 2 recent falls when carrying her groceries. She has had PT multiple times here in the past. And is very motivated--doing exercises 1-2x/day and committed to staying active. She voiced frustration about her diagnosis, chronic condition and after working so hard on her exercises, she is not gaining anything, still having balance problems and falling. Discussed with her options for therapy; she does attend a monthly support group. With the evaluation: her balance tests were within normal range for 5 reps sit/stand, Vasquez balance, TUG; the Dynamic Gait Index score is 18/ 24; she has decreased strength of R ankle, gait abnormalities and freezing with walking; with walking and carrying a bucket with 3# weight, she had more shuffling pattern;
--- NOTE | 2022-10-22 10:12 | OTOPEVAL1 ---
Assessment and note entered by Ely Melgar OT Evaluation Information Assessment Status Evaluation Diagnosis Parkinson's Subjective Information Pt. reports experiencing increased experience and frequency of Parkinson's symptoms of Bradykinesia, R UE > L UE, with increase in L sided symptoms including occasional tremor ~ 1x per day Pt. 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 over a period of time: Holding keys while walking to car, carrying groceries, bringing food to mouth with utensils, turning door handles, resulting in dropped objects , fatigue, loss of balance 2) Bradykinesa/freezing: While donning clothing 3) Fine motor control and motor planning for manipulation of items: putting garcia in lock, turning dials, shoe tying, cutting fruits and vegetables and stirring foods, decorating for the holidays, picking up vitamins and manipulating buttons Reported Pain Level Pain Score 0: Self Report Pain Score 0: Self Report Assessment OT Clinical Summary Patient referred to outpatient OT with dx of Parkinson's. Skilled therapy indicated secondary to a decline in ADL function, including decreased strength, bradykinesias, hypokinesia, overall UE fine motor control, and functional endurance. She will benefit from skilled treatment focused on targeting increasing strength, fine motor control quality and dexterity, ADL/IADL modifications and task focus, and continued amplitude based interventions to facilitate increased quality and capacity for kinesthetic and proprioceptive movement. [ End ] Plan of Care Interventions Therapeutic Exercise,Neuro Re-education, Therapeutic Activities OT Services Indicated Yes Treatment Frequency and 1x/week for 4 weeks Duration These treatments will address the objective and functional deficits as defined above. The patient will be advanced safely and appropriately in order for the patient to progress towards his/her prior level of function. Additional exercises twan
--- NOTE | 2022-10-22 10:15 | OPREHPOC ---
Outpatient Therapy Plan of Care This is a Multidisciplinary Plan of Care that may contain components documented by all disciplines (PT, OT, and ST.) PT Problem 1 PT Problem #1 Knowledge Deficit PT Goal 1 Goal 1 indep with HEP PT Problem 2 PT Problem #2 Impaired Strength PT Goal 1 Goal increase strength of R ankle: pt able to perform 20 reps in sittin* DF through full ROM 2* inversion with heel on ground 3* eversion with heel on ground single leg standing x 14 seconds 4* R 5* L PT Problem 3 PT Problem #3 Impaired Functional Mobil PT Goal 1 Goal 1* improve Dynamic Gait Index score to 21/24 2* pt able to walk 30, 3# wt in bucket with good gait pattern 3* pt step up curb/one step with 3# wt in bucket with good balance 4* pt report NO falls OT Problem 1 OT Problem #1 Knowledge Deficit OT Goal 1 Goal Pt. to be independent with all materials Target Visit 4 OT Problem 2 OT Problem #2 Impaired Coordination OT Goal 1 Goal Pt. demonstrates completion of fine motor task with use of R UE by 10 seconds and L UE by 5 seconds Target Visit 4 OT Problem 3 OT Problem #3 Impaired Strength OT Goal 1 Goal Pt. to demonstrate increased bilateral UE Grasp Stength by 5 lbs Target Visit 4 OT Goal 2 Goal Pt. to demonstrate increased bilateral lateral pinch and tip pinch by 2 lbs Target Visit 4
--- NOTE | 2022-11-19 09:48 | PTOPDC ---
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 She is very motivated, stays active and does her exercises at home. Compared to the initial evaluation: R ankle strength has improved with DF, inversion and eversion motions; single leg standing improved R and L; walking with carrying in one hand has improved; Dynamic Gait Index is the same; has not had any falls; home exercise program has been progressed. The goals were partially achieved. Discharge PT services. Plan of Care PT Services Indicated No
--- NOTE | 2022-11-22 11:05 | OTOPDC ---
Assessment and note entered by Jamin Zaman, REGINALDOR/Josie, CHT Discharge Summary 11/22/22 Diagnosis Parkinson's Subjective Information Patient reports she continues to have the same difficulties as she did before, but reports in general she is not declining, which in her opinion is progress due to the progressive nature of her disease. She reports she is doing well with keeping up with her HEP daily. Assessment OT Clinical Summary Patient referred to outpatient OT with dx of Parkinson's. Since her initial evaluation, Ginna has made progress with functional strength and coordination. She reports excellent compliance with HEP, working on some sort of exercise program daily. At this time we are discharging from OT services with goals met. [ End ] Plan of Care OT Services Indicated No
== END 2022-11-22 14:03 | disposition home or self-care (01) ==
LOC: ANHOT 10:15
PROVIDERS: PCP Family Medicine Adolescent Medicine
DX: G20 Parkinson's disease (principal)
CPT/HCPCS: 97110; 97161; 97166; 97530

== ENCOUNTER 2023-07-11 11:00 | Outpatient (RCR) | payer MEDICARE, SELFPAY ==
--- NOTE | 2023-05-30 15:23 | OPREHPOC ---
Outpatient Therapy Plan of Care This is a Multidisciplinary Plan of Care that may contain components documented by all disciplines (PT, OT, and ST.) PT Problem 1 PT Problem #1 Knowledge Deficit PT Goal 1 Goal *indep with HEP Target Visit 7 PT Problem 2 PT Problem #2 Pain PT Goal 1 Goal *monitor pain during sessions Target Visit 7 PT Problem 3 PT Problem #3 Impaired Functional Mobil PT Goal 1 Goal improve dynamic balance and posture with walking, to decrease risk for falls 1* Vasquez balance score of 55/56 2* 2 minute walking test distance of 425' 3* pt perform 8 alternating toe taps on 6 step without toe drag 4* pt ambulate with extension of trunk & knees at stance phase, for the 2 minute walk test 5* pt report NO falls
--- NOTE | 2023-05-30 15:23 | PTOPEVAL1 ---
Assessment and note entered by Sally Sheppard, PT Evaluation Information Assessment Status Evaluation Diagnosis Parkinson's--decreased balance and having falls Onset Jan 2023 Subjective Information in the past 6 months, have fallen about 2x/wk-- walking and slow motions falls, in forward direction--lifting, carrying, reaching with L hand does not use R hand--decreased response and control with R hand; can get herself up off the floor, sometimes have to pull up on furniture; saw neurologist for 6 month check up and they want to put her on L Dopa, but she does not want to take it, too many side effects; she is more tired, having more shuffling with walking and problems stopping when walking; Activity: for the past month have been busy--went to [place] for grand daughter's and then they returned here with her for 2 weeks; have not been doing many weights lately, tired of that and doing singing and dancing for fitness~ 10-15 minutes/day and done the Parkinson's LSVT exercises every day, some stretching and yoga too. Reported Pain Level Pain Score 0: Self Report Pain Score 0: Self Report Additional Pain Score Comments have history of back pain, manages with over the counter meds; Assessment PT Clinical Summary Ginna has the diagnosis of Parkinson's Disease with decreased gait/balance and falls. Reports she has been falling about 2x/week, when walking, tend to fall forward and is able to get herself up off the floor. She has had PT in the past and continues to perform HEP and be active. With the evaluation: Vasquez balance score of 52/56; 2 minute walking test distance of 350' with reports of ankle pain at the end of the walk; her 5 reps sit/stand and TUG scores were WNL; she has shuffling, festering gait pattern that increased with the 2 minute walking test and when reaching her destination when walking; her normal standing position is with hips and knees flexed. Skilled PT services are indicated to improve her dynamic balance, standing posture, gait pattern and decrease risk for f
--- NOTE | 2023-05-30 15:48 | OTOPEVAL1 ---
Assessment and note entered by Jamin Zaman, OTR/L, CHT Evaluation Information Diagnosis Parkinson's Disease Onset ~8 years ago Subjective Information Pt. reports experiencing increased frequency and severity of Parkinson's symptoms of bradykinesia and hypokinesia, R UE worse than L UE. She reports several falls recently. Pt. reports continued and increased difficulty with ADL and IADL tasks including dressing, bilateral tasks such as cutting food, putting a garcia in a lock or ignition. She works on exercises daily - stretching, LSVT HEP, states she hasn't been getting out as much to go for walks Assessment OT Clinical Summary Patient referred to OT with dx of Parkinson's. She presents with hypokinesia and reduced amplitude of movement on the right side which affects ADLs such as dressing, bathing, and cooking. (R) UE is more impaired than the left and she has been heavily favoring the left for tasks. Skilled OT indicated to maximize functional UE flexibility, strength, and use. Plan of Care Interventions Therapeutic Exercise,Manual Therapy,Neuro Re- education,Therapeutic Activities OT Services Indicated Yes Treatment Frequency and 1x/week for 7 visits Duration These treatments will address the objective and functional deficits as defined above. The patient will be advanced safely and appropriately in order for the patient to progress towards his/her prior level of function. Additional exercises will be introduced and as well as a comprehensive home exercise program upon discharge, if needed, ?to ensure carryover of functional gains achieved in the clinic. This treatment plan has been reviewed and agreement upon by the patient.
--- NOTE | 2023-05-30 15:49 | OPREHPOC ---
Outpatient Therapy Plan of Care This is a Multidisciplinary Plan of Care that may contain components documented by all disciplines (PT, OT, and ST.) PT Problem 1 PT Problem #1 Knowledge Deficit PT Goal 1 Goal *indep with HEP Target Visit 7 PT Problem 2 PT Problem #2 Pain PT Goal 1 Goal *monitor pain during sessions Target Visit 7 PT Problem 3 PT Problem #3 Impaired Functional Mobil PT Goal 1 Goal improve dynamic balance and posture with walking, to decrease risk for falls 1* Vasquez balance score of 55/56 2* 2 minute walking test distance of 425' 3* pt perform 8 alternating toe taps on 6 step without toe drag 4* pt ambulate with extension of trunk & knees at stance phase, for the 2 minute walk test 5* pt report NO falls OT Problem 1 OT Problem #1 Knowledge Deficit OT Goal 1 Goal 1. Patient to be independent with instructed materials. Target Visit 7 OT Problem 2 OT Problem #2 Impaired Range of Motion OT Goal 1 Goal 1. Improve functional flexibility of the right shoulder to be able to flex through 140 degrees when reaching into a cabinet. Target Visit 7 OT Problem 3 OT Problem #3 Impaired Coordination OT Goal 1 Goal 1. Improve functional fine motor coordination as demonstrated by being able to complete the 9-hole peg test with the right hand in 33 seconds or less . Target Visit 7 OT Problem 4 OT Problem #4 Impaired Strength OT Goal 1 Goal 1. Improve bilateral shoulder strength to 4+/5. 2. Improve bilateral triceps strength to 4+/5. 3. 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 Target Visit 7
--- NOTE | 2023-07-11 10:57 | OTOPDC ---
Assessment and note entered by Jamin Zaman, OTR/L, CHT OT D/C 07/11/23 Diagnosis Parkinson's Disease Onset ~8 years ago Subjective Information Pt. reports her symptoms are feeling about the same. She states she fell while on a walk with a friend last week, states it felt like her leg just gave out. She reports continued symptoms of bradykinesia and hypokinesia, R UE worse than L UE . Pt. reports continued and increased difficulty with ADL and IADL tasks including dressing, bilateral tasks such as cutting food, putting a garcia in a lock or ignition. She reports she had a bout of vertigo 2 weeks ago and she spent 2 days in bed. Reports she was extremely stiff and rigid after this. Notes that her symptoms have resolved with this. Assessment OT Clinical Summary Patient referred to OT with dx of Parkinson's. OT has been focusing on UB functional strength, flexibility, and coordination. She continues to demonstrate difficulties with right UE use due to deficits hypokinesia and reduced amplitude of movement which affects ADLs such as dressing, bathing, and cooking. Overall she is demonstrating improved flexibility in the right shoulder. Gross strength remained unchanged. D/C OT with patient independent with HEP. Plan of Care OT Services Indicated No
--- NOTE | 2023-07-11 11:46 | PTOPDC ---
Assessment and note entered by Sally Sheppard, PT Discharge Report Assessment Status Discharge Diagnosis Parkinson's--decreased balance and having falls Onset Jan 2023 Subjective Information with walking in the park with a friend, R knee buckled- friend held onto her and she did not fall both knees still sore and give her some soreness; feel like balance and walking are about the same-- shuffling gait is the same; have not been walking as much because it is harder to do and get more tired. Reported Pain Level Pain Score 0: Self Report Pain Score 0: Self Report Additional Pain Score Comments pain with touching and putting pressure over L lateral knee; continues to have some ankle pain and swelling; Assessment PT Clinical Summary Ginna has received 7 PT sessions. Compared to the initial evaluation: have not had any falls since starting treatment; Vasquez balance score is the same at 51/56; 2 minute walking test distance is 20' less; gait pattern is the same-- shuffling step, festering pattern; education completed for HEP. The goals were partially met. Discharge PT. She is to continue with her HEP and activity as tolerated, monitoring fatigue and rest PRN. Plan of Care PT Services Indicated No
== END 2023-07-11 13:06 | disposition home or self-care (01) ==
LOC: ANHPT 11:00
PROVIDERS: PCP Family Medicine Adolescent Medicine
DX: G20.A1 Parkinson's disease without dyskinesia, without mention of fluctuations (principal)
CPT/HCPCS: 97110; 97112; 97116; 97140; 97161; 97165; 97530

== ENCOUNTER 2023-12-05 12:30 | Outpatient (RCR) | payer MEDICARE, SELFPAY ==
--- NOTE | 2023-11-04 14:07 | OTOPEVAL1 ---
Assessment and note entered by Jamin Zaman, OTR/L, CHT Evaluation Information Assessment Status Evaluation Diagnosis Parkinson's Disease Subjective Information Patient reports her symptoms feel like they've plateaued. She reports right UE/LE are harder to move and she favors her left side. She reports episodes of right sided freezing, reporting she occasionally has a difficult time opening her hand to let go of objects. She reports continued symptoms of bradykinesia and hypokinesia, R UE worse than L UE. Pt. reports continued and increased difficulty with ADL and IADL tasks including dressing, bilateral tasks such as cutting food, putting a garcia in a lock or ignition. Reported Pain Level Pain Score 0: Self Report Assessment OT Clinical Summary Patient referred to OT with dx of Parkinson's. She presents with hypokinesia and reduced amplitude of movement on the right side which affects ADLs such as dressing, bathing, and cooking. (R) UE is more impaired than the left and she has been heavily favoring the left for tasks. Skilled OT indicated to maximize functional UE flexibility, strength, and use. Plan of Care Interventions Therapeutic Exercise,Therapeutic Activities,Hot Pack/Cold Pack OT Services Indicated Yes Treatment Frequency and 1x/week for 6 visits Duration These treatments will address the objective and functional deficits as defined above. The patient will be advanced safely and appropriately in order for the patient to progress towards his/her prior level of function. Additional exercises will be introduced and as well as a comprehensive home exercise program upon discharge, if needed, ?to ensure carryover of functional gains achieved in the clinic. This treatment plan has been reviewed and agreement upon by the patient.
--- NOTE | 2023-11-04 14:08 | OPREHPOC ---
Outpatient Therapy Plan of Care This is a Multidisciplinary Plan of Care that may contain components documented by all disciplines (PT, OT, and ST.) OT Problem 1 OT Problem #1 Knowledge Deficit OT Goal 1 Goal / Goal Update Patient to be independent with HEP. Target Visit 6 OT Problem 2 OT Problem #2 Impaired Coordination OT Goal 1 Goal / Goal Update Patient to improve bilateral UE coordination, amplitude, and endurance for ADL tasks as measured by being able to complete reciprocal punching into a punching bag x30 seconds without reduced amplitude movement. Target Visit 6 OT Goal 2 Goal / Goal Update Patient to improve right fine motor coordination for ADL tasks as measured by being able to complete the 9-hole peg test in 35 seconds or less . Target Visit 6 OT Problem 3 OT Problem #3 Impaired Flexibility OT Goal 1 Goal / Goal Update Patient to improve right UE flexibility with shoulder internal rotation to be less than 6 inches lower than the left shoulder internal rotation measurement. Target Visit 6 OT Problem 4 OT Problem #4 Impaired Strength OT Goal 1 Goal / Goal Update Patient to be able to maintain left elbow extension when completing shoulder horizontal abduction with green t-band x10 reps. Target Visit 6 OT Goal 2 Goal / Goal Update Patient to improve functional postural strength as demonstrated by needing less than 3 cues per session for posture. Target Visit 6
--- NOTE | 2023-11-04 15:50 | PTOPEVAL1 ---
Assessment and note entered by Sally Sheppard, PT Evaluation Information Assessment Status Evaluation Diagnosis Parkinson's ICD-10 Condition Codes (PT) Repeated falls R29.6,Difficulty Walking R26.2,R26. 9,Weakness R53.1 Onset August 2023 Subjective Information is having more falls- have loss of balance and sometimes catch herself; actually hit the floor about every other day- usually falling forward; falls occur: getting up at night doing to bathroom with exercising, leaning forward to pick something up off floor; open refrigerator door; problems getting up off the floor. when fall--can get herself up off the floor, crawling to furniture and pulling self up. Activity: do Parkinson's exercises every day; not using assistive device; indep with bathing, dressing and light home tasks; is getting good rest and sleep at night; GOAL: improve walking and balance, mobility, not have falls; Reported Pain Level Pain Score 0: Self Report Pain Score 0: Self Report Additional Pain Score Comments some knee tenderness from recent fall and landing on her knees; R ankle feels very stiff; Assessment PT Clinical Summary Ginna has the diagnosis of Parkinson's Disease with increase in falls. She has received PT in the past and does strengthening and balance exercises at home. With the evaluation: she has decreased strength of R ankle, with decreased DF ROM; decreased hip extension and abduction strength, with poor standing position and walking posture--hip, knee and trunk flexion. 2 minute walking test distance of 365' and Vasquez balance score of 50/56. Skilled PT services are indicated for therapeutic exercises and activities to increase trunk and LE strength, gait and balance skills, to decrease risk for falls and improve mobility, with education for HEP. Plan of Care Interventions Gait Training,Neuro Re-education,Patient/Caregiver Education,Therapeutic Activities,Therapeutic Exercise PT Services Indicated Yes Treatment Frequency and 1-2x/wk for 6 visits Duration These treatments will address the objective and functional deficits as defined above. The patient will be advanced safely and appropriately in order for the patient to progress towards his/her prior level of function. Additional exercises will be introduced and as well as a comprehensive home exercise program upon discharge, if needed, ?to ensure carryover of functional gains achieved in the clinic. This treatment plan has been reviewed and agreement upon by the patient.
--- NOTE | 2023-11-04 15:50 | OPREHPOC ---
Outpatient Therapy Plan of Care This is a Multidisciplinary Plan of Care that may contain components documented by all disciplines (PT, OT, and ST.) PT Problem 1 PT Problem #1 Knowledge Deficit PT Goal 1 Goal / Goal Update *indep with HEP Target Visit 6 PT Problem 2 PT Problem #2 Impaired Strength PT Goal 1 Goal / Goal Update increase strength of bilateral hip abduction and hip extension, and R ankle to improve walking pattern and balance: pt perform 20 reps with good stability 1* R hip side lying abduction to 10' 2* L hip side lying abduction to 10' 3* prone hip extension R 4* prone hip extension L 5* sitting ankle DF R to 10' 6* pt static stand with knees at 0' extension and hip extension 0' x 2 minutes Target Visit 6 PT Problem 3 PT Problem #3 Impaired Functional Mobil PT Goal 1 Goal / Goal Update 1* pt report NO falls 2* improve dynamic balance with Vasquez score of 56/ 56 3* pt ambulate for 2 minutes with heel strike R and L 50% time 4* 2 minute walking test distance of 400' Target Visit 6 OT Problem 1 OT Problem #1 Knowledge Deficit OT Goal 1 Goal / Goal Update Patient to be independent with HEP. Target Visit 6 OT Problem 2 OT Problem #2 Impaired Coordination OT Goal 1 Goal / Goal Update Patient to improve bilateral UE coordination, amplitude, and endurance for ADL tasks as measured by being able to complete reciprocal punching into a punching bag x30 seconds without reduced amplitude movement. Target Visit 6 OT Goal 2 Goal / Goal Update Patient to improve right fine motor coordination for ADL tasks as measured by being able to complete the 9-hole peg test in 35 seconds or less . Target Visit 6 OT Problem 3 OT Problem #3 Impaired Flexibility OT Goal 1 Goal / Goal Update Patient to improve right UE flexibility with shoulder internal rotation to be less than 6 inches lower than the left shoulder internal rotation measurment. Target Visit 6 OT Problem 4 OT Problem #4 Impaired Strength OT Goal 1 Goal / Goal Update Patient to be able to maintain left elbow extension when completing shoulder horizontal abduction with green t-band x10 reps. Target Visit 6 OT Goal 2 Goal / Goal Update Patient to improve functional postural strength as demonstrated by needing less than 3 cues per session for posture. Target Visit 6
--- NOTE | 2023-12-05 12:00 | OTOPDC ---
Assessment and note entered by Jamin Zaman, OLMAN/Josie, CHT Evaluation Information Assessment Status Discharge Diagnosis Parkinson's Disease Subjective Information Patient reports improvement in her overall mood and physical abilities. She states she also did start a new medication at the end of September and this could also be contributing to this. She reports she continues to try to do as much as she can with her right UE, but she continues to report it fatigues very easily. She states it's hard to tell if her freezing is any better. She reports dressing feels about the same, she reports putting on her winter clothes (long sleeves) has been difficult and she plans to wear short sleeves with jackets as this is easier to manage. She states that cutting food appears to be easier. Reported Pain Level Pain Score 0: Self Report Assessment OT Clinical Summary Patient referred to OT with dx of Parkinson's. She presents with hypokinesia and reduced amplitude of movement on the right side which affects ADLs such as dressing, bathing, and cooking. (R) UE is more impaired than the left and she has been heavily favoring the left for tasks. She has participated in 6 sessions focused on improving functional flexibility, amplitude of movement, posture, and strength. She continues to display deficits with all of the above. She reports coming to do her 6 month check ups with therapy continue to make her very motivated to continue her home exercises. At this time we are discharging with patient in dependent with all materials. Plan of Care OT Services Indicated No
--- NOTE | 2023-12-05 13:26 | PTOPDC ---
Assessment and note entered by Sally Sheppard, PT Assessment Status Discharge Diagnosis Parkinson's ICD-10 Condition Codes (PT) Repeated falls R29.6,Difficulty Walking R26.2,R26. 9,Weakness R53.1 Onset August 2023 Subjective Information have good days and some days that are more difficult; have some back pain with over doing things; have not had any falls since coming for therapy; doing all the exercises at home; Reported Pain Level Pain Score 0: Self Report Pain Score 0: Self Report Additional Pain Score Comments no pain now, have intermittent back pain Assessment PT Clinical Summary Ginna has received 6 PT sessions. Compared to initial evaluation: increase in R and L hip strength & R ankle DF; continues to have weakness over R ankle inversion and eversion motions; 2 minute walking test distance decreased from 365' to 350'; continues to walk with flexion of trunk, hips and knees, with flat foot pattern; she has not had any falls during therapy time period; progression of HEP and education. The goals were partially met. Discharge PT. She is to continue with her HEP. Plan of Care PT Services Indicated No
== END 2023-12-05 17:10 | disposition home or self-care (01) ==
LOC: ANHPT 12:30
PROVIDERS: PCP Family Medicine Adolescent Medicine
DX: G20.A1 Parkinson's disease without dyskinesia, without mention of fluctuations (principal)
CPT/HCPCS: 97110; 97112; 97116; 97161; 97165; 97530

== ENCOUNTER 2024-06-28 10:00 | Outpatient (RCR) | payer MEDICARE, SELFPAY ==
--- NOTE | 2024-05-21 10:04 | OPREHPOC ---
Outpatient Therapy Plan of Care This is a Multidisciplinary Plan of Care that may contain components documented by all disciplines (PT, OT, and ST.) PT Problem 1 PT Problem #1 Knowledge Deficit PT Goal 1 Goal / Goal Update *independent with HEP Target Visit 6 PT Problem 2 PT Problem #2 Impaired Strength PT Goal 1 Goal / Goal Update *increase R and L LE strength, to improve mobility skills 1* L hip 4+/5 2* R hip 4+/5 3* R ankle 3+/5 4* pt ambulate with knee extension with stance phase of gait Target Visit 6 PT Problem 3 PT Problem #3 Impaired Functional Mobility PT Goal 1 Goal / Goal Update 1* pt transfer sitting/floor with use of UE on mat , modified independent 2* Dynamic Gait Index rating of 19/24 to improve mobility 3* pt report NO falls 4* pt ambulate 2 minute walking test with step length pass other foot
--- NOTE | 2024-05-21 10:05 | PTOPEVAL1 ---
Assessment and note entered by Sally Sheppard PT Evaluation Information Assessment Status Evaluation ICD-10 Condition Codes (PT) Repeated falls R29.6,Difficulty Walking R26.2, Abnormalities of gait and mobility R26.9,Weakness R53.1 Other ICD-10 Condition Codes ( Parkinson's G20.A1 PT) Onset April 2024 Subjective Information more issues with walking and balance; in the past 6 months have had 2 falls: after dinner, picked up dishes and turned to go into kitchen; missed step going into a friend's home with low lighting at [place] time more problems getting up off the floor dr wants her to do on [place], but she does not want to because of the side effects activity: use rollator in the house- for walking and carrying things- put things on the seat; have stopped driving, provides transportation; continues to do her fitness exercises for legs and balance that previously received from PT-- stretching and strengthening. GOAL: walk without shuffling, balance better with walking Reported Pain Level Pain Score Self Report Additional Pain Score Comments R hip, knee and ankle; pain range of 3-8/10 hurt & tight-- more in AM, better as the day goes on; take tylenol for it also have back pain---usually in low back and L side Assessment PT Clinical Summary Ginna has the diagnosis of Parkinson's Disease, with decrease gait and balance skills. Recently has had 2 falls and reports issues getting up from the floor and walking. Now using a rollator in home PRN, mostly with carrying things and fatigue. Continues to have pain in back, R hip, knee and ankle. And reports more problems with motor control of her legs--have to think with walking and look at legs with walking, to know what her feet are doing. She has had PT here in the past and is doing daily exercises. With the evaluation: LE functional scale self rating of 60% limitation in activity level; 5 reps sit/stand time is NWL at 13 seconds; weakness of bilateral hip abduction and extension and R ankle; Dynamic Gait Index score of 13/24; 2 minute walking test distance of 325'; poor gait pattern with flexion of trunk, hips and knees, flat foot and shuffling pattern; Skilled PT services are indicated to increase LE strength, gait and balance skills, to improve mobility and decrease fall risk. Plan of Care Interventions Gait Training,Neuro Re-education,Patient/Caregiver Education,Therapeutic Activities,Therapeutic Exercise PT Services Indicated Yes Treatment Frequency and 1x/wk for 6 visits Duration These treatments will address the objective and functional deficits as defined above. The patient will be advanced safely and appropriately in order for the patient to progress towards his/her prior level of function. Additional exercises will be introduced and as well as a comprehensive home exercise program upon discharge, if needed, to ensure carryover of functional gains achieved in the clinic. This treatment plan has been reviewed and agreement upon by the patient.
--- NOTE | 2024-05-21 11:05 | OTOPEVAL1 ---
Assessment and note entered by Jamin Zaman, OLMAN/Josie, DAVEY OT Evaluation Information 05/21/24 Assessment Status Evaluation Diagnosis Parkinson's Disease Subjective Information Patient reports a decline in functional abilities. She reports the last 6 months seems like she has noticed the quickest progression of her symptoms. She reports difficulties with handwriting, using a knife to cut food, stirring pasta or cake mix. She reports generalized stiffness and that she has to do stretching and exercises when she gets up before she starts her day and this helps. Assessment OT Clinical Summary Patient referred to OT with dx of PD. She presents with (R) sided stiffness, decreased amplitude of movement, and decreased kinesthesia. Patient performed several exercises in the clinic to pinpoint these deficits and she requires visual, tactile, and verbal feedback for form. Continued skilled services indicated for continued external feedback with therapeutic exercises, education on HEP, and functional coordination activities to facilitate improved functional use of her right UE . Plan of Care Interventions Therapeutic Exercise,Neuro Re-education, Therapeutic Activities OT Services Indicated Yes Treatment Frequency and 1x/week for 6 visits Duration These treatments will address the objective and functional deficits as defined above. The patient will be advanced safely and appropriately in order for the patient to progress towards his/her prior level of function. Additional exercises will be introduced and as well as a comprehensive home exercise program upon discharge, if needed, to ensure carryover of functional gains achieved in the clinic. This treatment plan has been reviewed and agreement upon by the patient.
--- NOTE | 2024-05-21 11:05 | OPREHPOC ---
Outpatient Therapy Plan of Care This is a Multidisciplinary Plan of Care that may contain components documented by all disciplines (PT, OT, and ST.) PT Problem 1 PT Problem #1 Knowledge Deficit PT Goal 1 Goal / Goal Update *independent with HEP Target Visit 6 PT Problem 2 PT Problem #2 Impaired Strength PT Goal 1 Goal / Goal Update *increase R and L LE strength, to improve mobility skills 1* L hip 4+/5 2* R hip 4+/5 3* R ankle 3+/5 4* pt ambulate with knee extension with stance phase of gait Target Visit 6 PT Problem 3 PT Problem #3 Impaired Functional Mobility PT Goal 1 Goal / Goal Update 1* pt transfer sitting/floor with use of UE on mat , modified independent 2* Dynamic Gait Index rating of 19/24 to improve mobility 3* pt report NO falls 4* pt ambulate 2 minute walking test with step length pass other foot OT Problem 1 OT Problem #1 Knowledge Deficit OT Goal 1 Goal / Goal Update Patient to be independent with instructed materials. Target Visit 6 OT Problem 2 OT Problem #2 Impaired Flexibility OT Goal 1 Goal / Goal Update Patient to improve functional (R) UE flexibility as demonstrated by being symmetrical to the (L) UE with active ROM at the shoulder and elbow. Target Visit 6 OT Problem 3 OT Problem #3 Impaired Strength OT Goal 1 Goal / Goal Update Patient to improve functional (R) UE strength as demonstrated by being able to complete bird dog exercise, being able to lift left UE through full ROM. Target Visit 6 OT Problem 4 OT Problem #4 Impaired Coordination OT Goal 1 Goal / Goal Update Patient to verbalize improved functional coordination for ADLs as measured by improved functional abilities with cutting and stirring food. Target Visit 6
--- NOTE | 2024-06-28 09:36 | OPREHPOC ---
Outpatient Therapy Plan of Care This is a Multidisciplinary Plan of Care that may contain components documented by all disciplines (PT, OT, and ST.) PT Problem 1 PT Problem #1 Knowledge Deficit PT Goal 1 Goal / Goal Update *independent with HEP 06-28-24 d/c goal met Target Visit 6 Progress Met PT Problem 2 PT Problem #2 Impaired Strength PT Goal 1 Goal / Goal Update *increase R and L LE strength, to improve mobility skills 1* L hip 4+/5 2* R hip 4+/5 3* R ankle 3+/5 4* pt ambulate with knee extension with stance phase of gait 06-28-24 d/c goals not met Target Visit 6 Progress Not Met PT Problem 3 PT Problem #3 Impaired Functional Mobility PT Goal 1 Goal / Goal Update 1* pt transfer sitting/floor with use of UE on mat , modified independent 2* Dynamic Gait Index rating of 19/24 to improve mobility 3* pt report NO falls 4* pt ambulate 2 minute walking test with step length pass other foot 06-28-24 d/c goals 1,3 met Target Visit 6 Progress Partially Met OT Problem 1 OT Problem #1 Knowledge Deficit OT Goal 1 Goal / Goal Update Patient to be independent with instructed materials. Target Visit 6 OT Problem 2 OT Problem #2 Impaired Flexibility OT Goal 1 Goal / Goal Update Patient to improve functional (R) UE flexibility as demonstrated by being symmetrical to the (L) UE with active ROM at the shoulder and elbow. Target Visit 6 OT Problem 3 OT Problem #3 Impaired Strength OT Goal 1 Goal / Goal Update Patient to improve functional (R) UE strength as demonstrated by being able to complete bird dog exercise, being able to lift left UE through full ROM. Target Visit 6 OT Problem 4 OT Problem #4 Impaired Coordination OT Goal 1 Goal / Goal Update Patient to verbalize improved functional coordination for ADLs as measured by improved functional abilities with cutting and stirring food. Target Visit 6
--- NOTE | 2024-06-28 09:36 | PTOPDC ---
Assessment and note entered by Sally Sheppard, PT Assessment Status Discharge ICD-10 Condition Codes (PT) Repeated falls R29.6,Difficulty Walking R26.2, Abnormalities of gait and mobility R26.9,Weakness R53.1 Other ICD-10 Condition Codes ( Parkinson's G20.A1 PT) Onset April 2024 Subjective Information have not had any falls; flexibility and strength of legs have improved; R side still giving me troubles-- slower moving; have been doing the exercises at home and walking; Reported Pain Level Pain Score 2,2: Self Report Additional Pain Score Comments knees are stiff, need to stretch them out some Assessment PT Clinical Summary Ginna has received 6 PT sessions. Compared to the initial evaluation: has not had any falls during therapy time frame; Dynamic gait index from to ; self assessment with LE functional scale rating from 60 to 41% limitation in activity level; 2 minute walking time distance from 325 to 380'; gait pattern continues to be with flexion of trunk, hips and knees, with flat foot pattern; HEP education completed. The goals were partially achieved. Discharge PT services. She is to continue with her HEP and walking as tolerated for fitness. Plan of Care PT Services Indicated No
--- NOTE | 2024-06-28 10:56 | OTOPDC ---
Assessment and note entered by Jamin Zaman, OLMAN/Josie, CHT OT Discharge Summary 06/28/24 Diagnosis Parkinson's Disease Subjective Information Patient reports feeling minimal progress in the last month, however she notes that her symptoms aren't any worse either. She reports she continues to experience difficulties with handwriting, using a knife to cut food, stirring pasta or cake mix. She reports good compliance with her HEP and she has added some new exercises to her routine or adjusted some of her exercises in the past month since she's been working with therapy and getting feedback on her form. Assessment OT Clinical Summary Patient referred to OT with dx of PD. Patient participated in a month of therapy focused on improved flexibility, strength, and amplitude of movement of the right UE. She demonstrates progress with flexibility of the right shoulder and improved ability to weight bear through the right UE. A month ago she favored the left side when completing yoga poses, such as a down dog, and now her weight is distributed more evenly and she was able to progress to being able to do a bird dog with the weight on the right. Functionally she is reporting no changes and she is reporting no progression of her symptoms from a month ago. Reviewed HEP today and plan to D/C today with patient independent with all materials. Plan of Care OT Services Indicated No
--- NOTE | 2024-06-28 10:56 | OPREHPOC ---
Outpatient Therapy Plan of Care This is a Multidisciplinary Plan of Care that may contain components documented by all disciplines (PT, OT, and ST.) PT Problem 1 PT Problem #1 Knowledge Deficit PT Goal 1 Goal / Goal Update *independent with HEP 06-28-24 d/c goal met Target Visit 6 Progress Met PT Problem 2 PT Problem #2 Impaired Strength PT Goal 1 Goal / Goal Update *increase R and L LE strength, to improve mobility skills 1* L hip 4+/5 2* R hip 4+/5 3* R ankle 3+/5 4* pt ambulate with knee extension with stance phase of gait 06-28-24 d/c goals not met Target Visit 6 Progress Not Met PT Problem 3 PT Problem #3 Impaired Functional Mobility PT Goal 1 Goal / Goal Update 1* pt transfer sitting/floor with use of UE on mat , modified independent 2* Dynamic Gait Index rating of 19/24 to improve mobility 3* pt report NO falls 4* pt ambulate 2 minute walking test with step length pass other foot 06-28-24 d/c goals 1,3 met Target Visit 6 Progress Partially Met OT Problem 1 OT Problem #1 Knowledge Deficit OT Goal 1 Goal / Goal Update Patient to be independent with instructed materials. ---OT D/C 06/28/24--- Met Target Visit 6 OT Problem 2 OT Problem #2 Impaired Flexibility OT Goal 1 Goal / Goal Update Patient to improve functional (R) UE flexibility as demonstrated by being symmetrical to the (L) UE with active ROM at the shoulder and elbow. ---OT D/C 06/28/24--- Not met, reduced shoulder flexion reduced elbow extension on the right Target Visit 6 OT Problem 3 OT Problem #3 Impaired Strength OT Goal 1 Goal / Goal Update Patient to improve functional (R) UE strength as demonstrated by being able to complete bird dog exercise, being able to lift left UE through full ROM. ---OT D/C 06/28/24--- Met Target Visit 6 OT Problem 4 OT Problem #4 Impaired Coordination OT Goal 1 Goal / Goal Update Patient to verbalize improved functional coordination for ADLs as measured by improved functional abilities with cutting and stirring food. ---OT D/C 06/28/24--- Not met Target Visit 6
== END 2024-06-28 13:22 | disposition home or self-care (01) ==
LOC: ANHOT 10:00
PROVIDERS: PCP Family Medicine Adolescent Medicine
DX: G20.A1 Parkinson's disease without dyskinesia, without mention of fluctuations (principal)
CPT/HCPCS: 97110; 97112; 97161; 97165; 97530

== ENCOUNTER 2024-08-28 10:34 | Outpatient (CLI) | payer MEDICARE, SELFPAY ==
--- NOTE | ~2024-08-28 | DEXA_ITS ---
Bone Density Report Name: AZIZA DOLL Age: 69 Sex: Female Ethnicity: White Date of : 1955 Indication: postmenopausal; screening for osteoporosis; height loss; Referring Provider: MAYITO GERARD Study: Bone densitometry was performed. Exam Date: August 28, 2024 Accession number: [id number] Bone Density: Region BMD T-score Z-score Classification AP Spine(L1-L4) 0.599 -4.1 -1.9 Osteoporosis Femoral Neck (Left) 0.460 -3.5 -1.7 Osteoporosis Total Hip (Left) 0.603 -2.8 -1.2 Osteoporosis Femoral Neck (Right) 0.421 -3.9 -2.0 Osteoporosis Total Hip (Right) 0.604 -2.8 -1.2 Osteoporosis Total Hip Mean 0.603 -2.8 -1.2 Osteoporosis World Health Organization criteria for BMD impression classify patients as: Normal (T-score at or above -1.0), Osteopenia (T-score between -1.0 and -2.5), or Osteoporosis (T-score at or below -2.5). 10-year Fracture Risk: FRAX not reported because: Some T-score for Spine Total or Hip Total or Femoral Neck at or below -2.5 Treated for osteoporosis Clinical Information Provided by Patient: Is being treated for osteoporosis Has used the following medications: Fosamax (i.e. alendronate), Vitamin D, Calcium Patient maximum height was 60 Menopause Age: 50 Onset of menses at age 12 Number of children 2 Impression: The patient has osteoporosis, based on the Total Spine T-score. Discussion: It is important to ask patients whether they are taking their medications and to encourage continued and appropriate compliance with their osteoporosis therapies to reduce fracture risk. It is also important to review their risk factors and encourage appropriate calcium and vitamin D intakes, exercise, fall prevention and other lifestyle measures. Follow-Up: Consider a repeat BMD and Vertebral Fracture Assessment (VFA) exam in 2 years or sooner if medically necessary, to reassess this patient's status. Reported by: PERCY on 08/28/2024 11:24:00 AM. Reviewed, dictated and finalized at location A.
--- OUTSIDE RECORDS SUMMARY | 2024-08-28 10:38 | XMS_ITS | Clinical Summary ---
Author Organization [facility] [address] [place] [id number] Care Team Providers Care Wharf Builder Name Role Phone Oleg Pires MD Primary Care Prov ider Surgical History Surgery Date Site/Laterality Comments BREAST BIOPSY Right Benign excisional biopsy Medical History Medical History Date Comments Idiopathic Parkinson's disease (HCC) 2016 Family History Medical History Relation Name Comments Breast cancer Neg Hx Social History Tobacco Use Types Packs/Day Years Used Date Smoking Tobacco: Never Assessed Comments No Sex and Gender Information Value Date Recorded Sex Assigned at Not on file Legal 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 Gender Identity Not on file Sexual Orientation Not on file Obstetrics History Para Term AB IAB SAB Ectopic Multiple Livin g Live Births 2 2 2 Date Outcome GA Total Labor Labor/2nd/3rd Weight Sex Type Anes PTL Cecelia A1 A5 Name Clin Term Term Plan of Treatment Health Maintenance Due Date Last Done Comments Colon Cancer Screening-Colonoscopy 1955 Depression Screening 1955 Fall Risk Assessment 1955 Hepatitis C Screening 1955 Osteoporosis Screening-Bone Density Scan 1955 DTaP/Tdap/Td Vaccine (1 - Tdap) 1964 Hepatitis B Screening 08/21/1971 Well Visit 65+ 2018 Pneumococcal vaccine 65+ (2 of 2 - PCV) 12/19/2020 12/20/2019 Zoster Vaccine (2 of 2) 06/26/2021 05/01/2021 Covid-19 Vaccine (4 - 2023-2 5 season) 2023 12/10/2020, 04/15/2020, 03/12/2020 Influenza Vaccine (Season Ended) 2024 11/14/19 21, 11/08/2019 Breast Cancer Screening-Mammogram 02/14/2025 02/15/2024, 10/13/2022, 05/19/2021, Additional history exists Procedures Procedure Name Priority Date/Time Associated Diagnosis Comments SCREENING MAMMOGRAM BILATERAL [facility] [place] Schedule Routine, Read Routine (OP Routine) 02/15/2024 10:48 AM POWER MULE OPERATOR Screening mammogram, encounter for from Last 3 Months or Most Recently Relevant to Health Maintenance Results * Screening Mammogram Bilateral [place] (02/15/2024 10:48 AM POWER MULE OPERATOR) Anatomical Region Laterality Modality Breast Bilateral Mammography Impressions 02/15/2024 11:20 AM POWER MULE OPERATOR BI-RADS ATLAS category (overall): 1 - Negative There is no mammographic evidence of malignancy. A 1 year screening mammogram is recommended. The patient has been or will be contacted. We recommend annual screening mammography for women at average risk of breast cancer beginning at age 40, based on guidelines of the [employer] (ACR Practice Parameter for the Performance of Screening and Diagnostic Mammography) and [employer]. For women with and elevated risk of breast cancer, please refer to the ACR Practice Parameter for specific screening recommendations. The patient will be entered into a reminder system with a target due date of 1 year for her next screening exam. Narrative 02/15/2024 11:20 AM POWER MULE OPERATOR Screening Mammogram Bilateral W [place]: 02/15/24 The study was acquired using full field digital technology and interpreted from soft copy. 2D digital mammographic views, as well as 3D digital tomosynthesis were performed in the CC and MLO projections. This study was resulted using Computer-Aided Detection (CAD). CLINICAL: Screening mammogram, encounter for. No relevant medical history has been documented for this patient. History of breast cancer in Neg Hx. COMPARISONS: 11/10/2022 Diagnostic Mammogram Left W [place] 05/19/2021 Screening Mammogram Bilateral W [place] 01/22/2020 Screening Mammogram 2D Bilateral 05/16/2018 Screening Mammogram 2D Bilateral 07/23/2016 Screening Mammogram 2D Bilateral 02/21/2014 Screening Mammogram 2D Bilateral BREAST TISSUE: The breasts are extremely dense, which lowers the sensitivity of mammography. FINDINGS: No suspicious masses, suspicious calcifications, or other suspicious findings are seen within either breast. There has been no suspicious change. us Self Screening Mammogram IMG MAMMO PROCEDURES Fi nal Result from Last 3 Months or Most Recently Relevant to Health [place] [address] [employer] MEDICARE [facility] MEDICARE Address: [facility] [id number] [place] [id number] Care Teams Wharf Builder Relationship Specialty Start Date End Date Oleg Pires MD PCP - General 05/16/18
--- OUTSIDE RECORDS SUMMARY | 2024-08-28 10:38 | XMS_ITS | Clinical Summary ---
Author Organization [facility] [email or web address] Address [address] [place] [address] Care Team Providers Care Government Operations Consultant Name Role Phone Oleg Pires MD Primary Care Provider + Ilan Boyce MD Unavailable Source Comments [facility],non-owned Affiliates and Associated Physician Practices is amultiple site organization consisting of ambulatory clinics and hospital sitesin [place], [place], [place] and [place]. This disclosure is being madepursuant to the Care Everywhere program and may not contain all information available regarding this patient. Last updated 17.[facility] Allergies Active Allergy Reactions Criticality Noted Date Comments Penicillins Rash Medium 03/31/2016 Medications * Be aware that medications may not be up to date on this document. Alwaysverify current medications with the patient. Multiple Vitamin (MULTIVITAMIN+ PO) Active Cyanocobalamin (B-12 PO) Active CALCIUM PO Take 600 mg by mouth once daily Active Turmeric 500 MG Acti ve melatonin 10 MG capsule Take 1 (one) capsule by mouth at bedtime Active vitamin D, cholecalciferol , 50 MCG (1999) tablet Take 1 (one) tablet by mouth once daily Active valACYclovir (VALTREX) 1 GM tablet Take by mouth as needed 0 Active GLUCOSAMINE-CHO NDROITIN PO Active Coenzyme Q10 (CO Q10) 200 MG Take 200 mg by mouth once daily Active Magnesium 400 MG Take 400 mg by mouth once daily Active alendronate (Fosamax) 10 MG tablet Take 1 (one) tablet by mouth daily before breakfast Active rasagiline (Azilect) 1 MG tabletIndicatio ns:Parkinson's Disease Take 1 (one) tablet by mouth once daily for 90 days Reasons: Parkinson's Disease 90 tablet 3 2 Active atorvastatin (Lipitor) 20 MG tablet Take 1 (one) tablet by mouth once daily 2 Active pramipexole (Mirapex) 0.25 MG tabletIndicatio ns:Parkinson's Disease Take 1 (one) tablet by mouth 3 times daily for 90 days Reasons: Parkinson's Disease 270 tablet 3 5 Active rasagiline (Azilect) 1 MG tabletIndicatio ns:Idiopathic Parkinson's disease (HCC) TAKE 1 (ONE) TABLET BY MOUTH ONCE DAILY AFTER BREAKFAST 90 tablet 3 5 06/05/19 26 Active rasagiline (Azilect) 1 MG tabletIndicatio ns:Parkinson's Disease Take 1 (one) tablet by mouth once daily Reasons: Parkinson's Disease 90 tablet 3 5 06/05/19 26 Active Active Problems Problem Noted Date Diagnosed Date Parkinson's disease 05/23/2018 Encounters Date Type Department Care Team Description 06/02/2024 Refill [facility] - Neurology [address] [place] [id number] Ilan Boyce MD Refill Request from Last 3 Months Immunizations Immunization Administration Dates Next Due INFLUENZA VACCINE, ADJUVANTE D, QUADR. (FLUAD QUADRIVALENT; 65Y+) (AIIV4) 11/08/2019 Social History Tobacco Use Types Packs/Day Years Used Date Smoking Tobacco: Never Smokeless Tobacco: Never Tobacco Cessation:Counseling Given: Not Answered Alcohol Use Standard Drinks/Week Comments No 0 (1 standard drink = 0.6 oz pur e alcohol) Comments No Sex and Gender Information Value Date Recorded Sex Assigned at Not on file Legal Sex Female 6:58 AM BLINTZE ROLLER Gender Identity Not on file Sexual Orientation Not on file Last Filed Vital Signs Vital Sign Reading Time Taken Comments Blood Pressure 124/76 04/11/2024 1:05 PM BLINTZE ROLLER Pulse 101 04/11/2024 1:05 PM BLINTZE ROLLER Temperature 36.2 C (97.1 F) 09/28/2022 12:51 PM CDT Respiratory Rate - - Oxygen Saturation 98% 04/11/2024 1:05 PM BLINTZE ROLLER Inhaled Oxygen Concentration - - Weight 50.3 kg (111 lb) 04/11/2024 1:05 PM BLINTZE ROLLER Height 152.4 cm (5') 09/28/2022 12:51 PM CDT Body Mass Index 21.68 09/28/2022 12:51 PM CDT Plan of Treatment Upcoming Encounters Date Type Department Care Team (Late st Contact Info) Description 10/10/2024 11:00 AM CDT Office Visit [facility] - Neurology [address] [place] [address], [place] [phone] Ilan Boyce MD [address] [place] [address] [place] [id number] Health Maintenance Due Date Last Done Comments BONE DENSITY TESTING 1955 COLOGUARD (AGES 45-75) - COLON CA SCREENING 1955 COLON MONITORING 1955 COLONOSCOPY - COLON CA SCREENING 1955 CT COLONOGRAPHY - COLON CA SCREENING 1955 Colorectal Cancer Screening 1955 FIT - COLON CA SCREENING 1955 FLEX SIG - COLON CA SCREENING 1955 HEPATITIS C SCREENING 08/16/1971 DTAP/TDAP/TD VACCINES (1 - Tdap) 1972 PNEUMOCOCCAL VACCINE 50+ (1 of 1 - PCV) 08/21/2003 ZOSTER VACCINE (1 of 2) 08/21/2003 COVID-19 VACCINE (1 - 2023- season) 2023 DEPRESSION SCREENING 02/08/2024 MEDICARE AWV CALENDAR YEAR 2024 INFLUENZA VACCINE (#1) 2024 11/08/2019 MAMMOGRAM 02/14/2026 02/15/2024, 09/2024, 10/13/2022, Additional history exists Respiratory Syncytial Virus (RSV) Vaccine Pt: or over 60 yrs (1 - 1-dose 75+ series) 2028 HEPATITIS B VACCINE Aged Out No longe r eligible based on patient's age to complete this topic HIB VACCINE Aged Out No longer eligi ble based on patient's age to complete this topic HPV VACCINE Aged Out No longer eligi ble based on patient's age to complete this topic MENINGOCOCCAL (Group B) VACCINE SHARED DECISION-MAKING Aged Out No longer eligible based on patient's age to complete this topic MENINGOCOCCAL GROUPS A/C/Y/W VACCINE Aged Out No longer eligible based on patient's age to complete this topic Insurance [employer] TNA MEDICARE ADV Care Teams Government Operations Consultant Relationship Specialty Start Date End Date Oleg Pires MD [address] [facility] [address] [place] [address] PCP - General 09/14/17 Ilan Boyce MD [address] [place] [address] Neurologist Neurology 08/26/20
--- OUTSIDE RECORDS SUMMARY | 2024-08-28 10:38 | XMS_ITS | Referral Summary ---
Author Organization [facility] Medical Office Building [address] [place] [id number] Care Team Providers Care Worm Picker Name Role Phone Oleg Pires MD Primary Care Prov ider Social History Tobacco Use Types Packs/Day Years Used Date Smoking Tobacco: Never Assessed Comments No Sex and Gender Information Value Date Recorded Sex Assigned at Not on file Legal Sex Female 8:13 PM DYNAMOMETER TESTER Gender Identity Not on file Sexual Orientation Not on file Plan of Treatment Not on file Procedures Procedure Name Priority Date/Time Associated Diagnosis Comments SCREENING MAMMOGRAM BILATERAL W PARISH Schedule Routine, Read Routine (OP Routine) 02/15/2024 10:48 AM DYNAMOMETER TESTER Screening mammogram, encounter for from Last 3 Months or Most Recently Relevant to Health Maintenance Results * Screening Mammogram Bilateral W Parish (02/15/2024 10:48 AM DYNAMOMETER TESTER) Anatomical Region Laterality Modality Breast Bilateral Mammography Impressions 02/15/2024 11:20 AM DYNAMOMETER TESTER BI-RADS ATLAS category (overall): 1 - Negative There is no mammographic evidence of malignancy. A 1 year screening mammogram is recommended. The patient has been or will be contacted. We recommend annual screening mammography for women at average risk of breast cancer beginning at age 40, based on guidelines of the [place] [employer] (ACR Practice Parameter for the Performance of Screening and Diagnostic Mammography) and [place] [employer]. For women with and elevated risk of breast cancer, please refer to the ACR Practice Parameter for specific screening recommendations. The patient will be entered into a reminder system with a target due date of 1 year for her next screening exam. Narrative 02/15/2024 11:20 AM DYNAMOMETER TESTER Screening Mammogram Bilateral W Parish: 02/15/24 The [...] Most Recently Relevant to Health [place] [address] AETNA MEDICARE [facility] MEDIC[facility] Address: [facility] [id number] [place] [address] Care Teams Worm Picker Relationship Specialty Start Date End Date Oleg Pires MD PCP - General 05/16/18
--- OUTSIDE RECORDS SUMMARY | 2024-08-28 10:38 | XMS_ITS | Clinical Summary ---
Author Organization [facility] Address [address] [place] [address] [place] [address] Care Team Providers Care Mid Level Java Developer Name Role Phone Oleg Pires MD Primary Care Provider [phone] Allergies No known active allergies Medications atorvastatin (LIPITOR) 20 mg tablet 08/26/2020 Active meloxicam (MOBIC) 15 mg tablet 09/25/2020 Active valACYclovir (VALTREX) 1 gram tablet Take by mouth. 06/20/2019 Active Active Problems No known active problems Social History Tobacco Use Types Packs/Day Years Used Date Smoking Tobacco: Never Smokeless Tobacco: Never Comments Unknown Sex and Gender Information Value Date Recorded Sex Assigned at Not on file Legal Sex Female 10:16 AM CDT Gender Identity Not on file Sexual Orientation Not on file Last Filed Vital Signs Vital Sign Reading Time Taken Comments Blood Pressure 109/73 09/30/2020 10:43 AM CDT Pulse 79 09/30/2020 10:43 AM CDT Temperature 36.4 C (97.5 F) 09/30/2020 10:43 AM CDT Respiratory Rate - - Oxygen Saturation 99% 09/30/2020 10:43 AM CDT Inhaled Oxygen Concentration - - Weight 47.6 kg (105 lb) 09/30/2020 10:43 AM CDT Height 152.4 cm (5') 09/30/2020 10:43 AM CDT Body Mass Index 20.51 09/30/2020 10:43 AM CDT Plan of Treatment Health Maintenance Due Date Last Done Comments DTAP/TDAP/TD VACCINES (1 - Tdap) 1972 COLORECTAL SCREENING 1998 Colorectal Cancer Screening 1998 FIT-DNA Q 3 years 1998 FIT/FOBT Q 1 year 1998 Flex Sig/CT Colonography Q 5 years 1998 PNEUMOCOCCAL VACCINE 50+ YEARS (1 of 1 - PCV) 08/21/19 04 ZOSTER VACCINE (1 of 2) 08/21/2003 OSTEOPOROSIS SCREENING 2018 BREAST CANCER SCREENING 01/21/2021 01/22/2020 INFLUENZA VACCINE (#1) 2024 RSV VACCINE (60+ or ) (1 - 1-dose 75+ series) 2028 Insurance Care Teams Mid Level Java Developer Relationship Specialty Start Date End Date Oleg Pires MD PCP - General Family Practice 09/30/20
== END 2024-08-28 10:35 | disposition home or self-care (01) ==
PROVIDERS: PCP Family Medicine Adolescent Medicine; Visit Provider Family Medicine Adolescent Medicine
DX: Z78.0 Asymptomatic menopausal state (principal); M81.0 Age-related osteoporosis without current pathological fracture
CPT/HCPCS: 77080

== ENCOUNTER 2024-12-14 10:00 | Outpatient (RCR) | payer MEDICARE, SELFPAY ==
--- NOTE | 2024-11-08 12:03 | OTOPEVAL1 ---
Assessment and note entered by OLMAN Campos/Josie, CHT Evaluation Information Assessment Status Evaluation Diagnosis Idiopathic Parkinson's disease Onset ~8 years ago Subjective Information Patient reports she began experiencing the biggest physical decline over the summer. She states she started falling all the time. She reports she actually stopped driving and going to the store for a while. This prompted her to go to the neurologist who suggested starting carbidopa levodopa. She notes she takes it 3x/day and does notice her symptoms get worse as it gets closer to her dose. She reports a decline in her balance, noticing difficulty changing positions, especially quickly, like when in the kitchen and she is prepping a meal moving from the counter to the fridge and turning around a lot. She feels off balance when getting dressed/donning pants, she cannot stand on her right leg (her affected side) when getting her left leg into her pants for example. She reports difficulties with fine motor tasks such as turning her garcia in her ignition, using scissors, opening jars, and cutting food. Reported Pain Level Pain Score 5: Self Report Assessment OT Clinical Summary Patient referred to OT with dx of idiopathic Parkinson's disease with hypokinesia and reduced amplitude of movement, particularly on the right side. This has affected her daily life with reduced functional coordination in her dominant UE for cooking, reaching into cabinets, carrying items from room to room, fine motor coordination to be able to turn her garcia's ignition, and open jars. Skilled OT indicated to maximize functional coordination and amplitude of movement to facilitate improved functional use of her right UE for ADLs. Plan of Care Interventions Therapeutic Exercise,Manual Therapy,Neuro Re- education,Therapeutic Activities,Hot Pack/Cold Pack OT Services Indicated Yes Treatment Frequency and 1x/week for 6 visits Duration These treatments will address the objective and functional deficits as defined above. The patient will be advanced safely and appropriately in order for the patient to progress towards his/her prior level of function. Additional exercises will be introduced and as well as a comprehensive home exercise program upon discharge, if needed, ?to ensure carryover of functional gains achieved in the clinic. This treatment plan has been reviewed and agreement upon by the patient.
--- NOTE | 2024-11-08 12:03 | OPREHPOC ---
Outpatient Therapy Plan of Care This is a Multidisciplinary Plan of Care that may contain components documented by all disciplines (PT, OT, and ST.) OT Problem 1 OT Problem #1 Knowledge Deficit OT Goal 1 Goal / Goal Update 1. Patient to be independent with instructed materials. Target Visit 6 OT Problem 2 OT Problem #2 Impaired Coordination OT Goal 1 Goal / Goal Update 1. Patient to increase functional fine motor coordination on the right hand as measured by being able to complete the 9-hole peg test in 40 seconds or less. 2. Patient to increase functional gross motor coordination on the right UE as measured by being able to complete cone placing assessment x5 cones (from floor height to high cabinet) in 40 seconds or less. 3. Patient to increase functional fine motor coordination in the right hand as measured by reporting improved ability to hold and turn the garcia in her car's ignition. 4. Patient to increase functional gross motor coordination in the right UE as measured by improving amplitude of movement during functional tasks as measured by being symmetrical to the left . Target Visit 6
--- NOTE | 2024-11-08 13:32 | OPREHPOC ---
Outpatient Therapy Plan of Care This is a Multidisciplinary Plan of Care that may contain components documented by all disciplines (PT, OT, and ST.) PT Problem 1 PT Problem #1 Knowledge Deficit PT Goal 1 Goal / Goal Update *independent with HEP progression Target Visit 6 PT Problem 2 PT Problem #2 Impaired Strength PT Goal 1 Goal / Goal Update 1*increase strength of trunk, hip, knee extension and ankle DF, R and L to 4/5; to improve position of body and walking and standing 2* with walking 450'- pt have heel strike 50% of the time on R and L Target Visit 6 PT Problem 3 PT Problem #3 Impaired Functional Mobility PT Goal 1 Goal / Goal Update 1* pt perform standing alternate toe taps R/L 10 reps total, without R toe catch on step 2* pt perform walking forward 50' and turning to R and L x 2 reps each, without loss of balance 3* perform simulated step down and turn, like her home garage, without loss of balance and report confident with it Target Visit 6 OT Problem 1 OT Problem #1 Knowledge Deficit OT Goal 1 Goal / Goal Update 1. Patient to be independent with instructed materials. Target Visit 6 OT Problem 2 OT Problem #2 Impaired Coordination OT Goal 1 Goal / Goal Update 1. Patient to increase functional fine motor coordination on the right hand as measured by being able to complete the 9-hole peg test in 40 seconds or less. 2. Patient to increase functional gross motor coordination on the right UE as measured by being able to complete cone placing assessment x5 cones (from floor height to high cabinet) in 40 seconds or less. 3. Patient to increase functional fine motor coordination in the right hand as measured by reporting improved ability to hold and turn the garcia in her car's ignition. 4. Patient to increase functional gross motor coordination in the right UE as measured by improving amplitude of movement during functional tasks as measured by being symmetrical to the left . Target Visit 6
--- NOTE | 2024-11-08 13:32 | PTOPEVAL1 ---
Assessment and note entered by Sally Sheppard, PT Evaluation Information Assessment Status Evaluation ICD-10 Condition Codes (PT) Difficulty Walking R26.2,Abnormalities of gait and mobility R26.9,Weakness R53.1 Other ICD-10 Condition Codes ( Parkinson's G20.A1 PT) Onset July 2024 Subjective Information more issues with Parkinson's disease, progression to problems walking and had to use a rollator; went to dr, decided to start levodopa, taken for about one month and it has helped; is taking it 3x /day and can tell when it is wearing off and need the next dose; stairs and balance with walking and turning; step in garage, usually carrying something also when on the step since new meds, no falls; prior to med, was falling 1-2 x/day; have not gotten hurt from the falls, try to land on the chair or bed; activity: home with , not using cane or walker, have one step to garage--have a closet beside it and have to pivot to get around it; ( discussed grab bar on the closet wall for holding onto) have been walking outside, up to 15 minutes/day; doing the previous HEP, hand weight for arms, stretching, yoga, Parkinson's Big exercises; total per day 2-2 & 1/2 hours; Reported Pain Level Pain Score 0: Self Report Pain Score 5: Self Report Additional Pain Score Comments slept wrong on L shoulder: at rest 0/10 and with moving L arm 5/10 Assessment PT Clinical Summary Ginna has the diagnosis of falls, LE weakness, Parkinson's disease. She had a decline in mobility with more falls, and neurologist added Parkinson's med and she is doing better. She has received PT here in the past and continues to do the HEP and walk daily for fitness. She reports lack confidence on the step into her garage due to having to turn to get around a wall and balance with walking and turning. With the evaluation: 5 reps sit/stand time is 13 seconds, Vasquez balance score 55/56, single leg standing time R 18/ L 19 seconds and 2 minute walking test distance of 465'---all fall within normal range. She has poor standing & walking position with flexion of trunk, hips and knees due to extension weakness: 4-/5; gait pattern with flat foot pattern. Skilled PT services to increase trunk, hip and knee extension & ankle DF strength, to improve posture and position of her body, standing dynamic balance with turning and one step with turning , with education for HEP and safety with walking. Plan of Care Interventions Gait Training,Neuro Re-education,Patient/Caregiver Education,Therapeutic Activities,Therapeutic Exercise PT Services Indicated Yes Treatment Frequency and 1x/wk for 6 visits Duration These treatments will address the objective and functional deficits as defined above. The patient will be advanced safely and appropriately in order for the patient to progress towards his/her prior level of function. Additional exercises will be introduced and as well as a comprehensive home exercise program upon discharge, if needed, ?to ensure carryover of functional gains achieved in the clinic. This treatment plan has been reviewed and agreement upon by the patient.
--- NOTE | 2024-12-14 09:46 | OPREHPOC ---
Outpatient Therapy Plan of Care This is a Multidisciplinary Plan of Care that may contain components documented by all disciplines (PT, OT, and ST.) PT Problem 1 PT Problem #1 Knowledge Deficit PT Goal 1 Goal / Goal Update *independent with HEP progression 12-14-24 d/c goal met Target Visit 6 Progress Met PT Problem 2 PT Problem #2 Impaired Strength PT Goal 1 Goal / Goal Update 1*increase strength of trunk, hip, knee extension and ankle DF, R and L to 4/5; to improve position of body and walking and standing 2* with walking 450'- pt have heel strike 50% of the time on R and L 12-14-24 d/c goals met Target Visit 6 Progress Met PT Problem 3 PT Problem #3 Impaired Functional Mobility PT Goal 1 Goal / Goal Update 1* pt perform standing alternate toe taps R/L 10 reps total, without R toe catch on step 2* pt perform walking forward 50' and turning to R and L x 2 reps each, without loss of balance 3* perform simulated step down and turn, like her home garage, without loss of balance and report confident with it 12-14-24 d/c goals 2,3 met; #1 had 1 toe catch Target Visit 6 Progress Partially Met OT Problem 1 OT Problem #1 Knowledge Deficit OT Goal 1 Goal / Goal Update 1. Patient to be independent with instructed materials. Target Visit 6 OT Problem 2 OT Problem #2 Impaired Coordination OT Goal 1 Goal / Goal Update 1. Patient to increase functional fine motor coordination on the right hand as measured by being able to complete the 9-hole peg test in 40 seconds or less. 2. Patient to increase functional gross motor coordination on the right UE as measured by being able to complete cone placing assessment x5 cones (from floor height to high cabinet) in 40 seconds or less. 3. Patient to increase functional fine motor coordination in the right hand as measured by reporting improved ability to hold and turn the garcia in her car's ignition. 4. Patient to increase functional gross motor coordination in the right UE as measured by improving amplitude of movement during functional tasks as measured by being symmetrical to the left . Target Visit 6
--- NOTE | 2024-12-14 09:46 | PTOPDC ---
Assessment and note entered by Sally Sheppard, PT Assessment Status Discharge ICD-10 Condition Codes (PT) Difficulty Walking R26.2,Abnormalities of gait and mobility R26.9,Weakness R53.1 Other ICD-10 Condition Codes ( Parkinson's G20.A1 PT) Onset July 2024 Subjective Information have been keeping busy and moving; using rebounder several times a day, 5-10 min each; new med is still helping, taking it 3x/day and can tell when it is time for the next dose- feel little spacy and tired; with the garage step, cleared around it and feel better now doing the step; no falls; Reported Pain Level Pain Score 0: Self Report Assessment PT Clinical Summary Ginna has received 6 PT sessions. She has improved with gait pattern of heel strike and full knee extension with stance phase--but only with slower pace and concentration with walking; once she increases her speed, has flat foot pattern and knee flexion with stance phase; balance improved, is able to walk and perform 360' turns to R and L with continued walking and did not lose her balance; is confident with one step and then turning, simulating her garage situation; she has not had any falls; education completed for HEP and mobility. The goals were partially achieved. Discharge PT. She is to continue with her HEP. Plan of Care PT Services Indicated no
--- NOTE | 2024-12-14 10:46 | OTOPDC ---
Assessment and note entered by Jamin Zaman, OTR/Josie, DAVEY OT D/C 12/14/24 Assessment Status Discharge Diagnosis Idiopathic Parkinson's disease Onset ~8 years ago Subjective Information Patient reports improvements with her balance, partially in the kitchen when changing positions. She reports she continues to feel off balance when getting dressed/donning pants, she cannot stand on her right leg (her affected side) when getting her left leg into her pants for example and sits to do this now. She reports no change with fine motor tasks such as turning her garcia in her ignition, using scissors, opening jars, and cutting food. Assessment OT Clinical Summary Patient referred to OT with dx of idiopathic Parkinson's disease with hypokinesia and reduced amplitude of movement, particularly on the right side. Patient has participated in 6 OT sessions focused on improved amplitude of movement, improved flexibility, and improved functional coordination for ADLs. Patient demonstrating improvements with gross and fine motor coordination with timed activities in the clinic, however she is reporting limited carryover into ADLs. At this time patient is independent with all materials/HEPs. D/C OT at this time. Plan of Care OT Services Indicated No
--- NOTE | 2024-12-14 10:47 | OPREHPOC ---
Outpatient Therapy Plan of Care This is a Multidisciplinary Plan of Care that may contain components documented by all disciplines (PT, OT, and ST.) PT Problem 1 PT Problem #1 Knowledge Deficit PT Goal 1 Goal / Goal Update *independent with HEP progression 12-14-24 d/c goal met Target Visit 6 Progress Met PT Problem 2 PT Problem #2 Impaired Strength PT Goal 1 Goal / Goal Update 1*increase strength of trunk, hip, knee extension and ankle DF, R and L to 4/5; to improve position of body and walking and standing 2* with walking 450'- pt have heel strike 50% of the time on R and L 12-14-24 d/c goals met Target Visit 6 Progress Met PT Problem 3 PT Problem #3 Impaired Functional Mobility PT Goal 1 Goal / Goal Update 1* pt perform standing alternate toe taps R/L 10 reps total, without R toe catch on step 2* pt perform walking forward 50' and turning to R and L x 2 reps each, without loss of balance 3* perform simulated step down and turn, like her home garage, without loss of balance and report confident with it 12-14-24 d/c goals 2,3 met; #1 had 1 toe catch Target Visit 6 Progress Partially Met OT Problem 1 OT Problem #1 Knowledge Deficit OT Goal 1 Goal / Goal Update 1. Patient to be independent with instructed materials. ---OT D/C 12/14/24--- 1. Met Target Visit 6 OT Problem 2 OT Problem #2 Impaired Coordination OT Goal 1 Goal / Goal Update 1. Patient to increase functional fine motor coordination on the right hand as measured by being able to complete the 9-hole peg test in 40 seconds or less. 2. Patient to increase functional gross motor coordination on the right UE as measured by being able to complete cone placing assessment x5 cones (from floor height to high cabinet) in 40 seconds or less. 3. Patient to increase functional fine motor coordination in the right hand as measured by reporting improved ability to hold and turn the garcia in her car's ignition. 4. Patient to increase functional gross motor coordination in the right UE as measured by improving amplitude of movement during functional tasks as measured by being symmetrical to the left . ---OT D/C 12/14/24--- 1. Met 2. Met 3. Not met 4. Not met, patient requires cues Target Visit 6
== END 2024-12-14 12:31 | disposition home or self-care (01) ==
LOC: ANHOT 10:00
PROVIDERS: PCP Family Medicine Adolescent Medicine
DX: G20.A1 Parkinson's disease without dyskinesia, without mention of fluctuations (principal)
CPT/HCPCS: 97110; 97112; 97116; 97161; 97166; 97530